=== PATIENT | female | born 1940 | race Caucasian/White ===

== ENCOUNTER → 2016-09-30 | Outpatient (CLI) | payer MEDICARE, MEDICAID | LOC: WI 09:10 | PROVIDERS: ATTEND Internal Medicine | DX: Z12.31 Encounter for screening mammogram for malignant neoplasm of breast (principal) | CPT/HCPCS: 77067; G0202 ==

== ENCOUNTER → 2016-12-10 | Outpatient (CLI) | payer MEDICARE, MEDICAID ==
[2016-12-10 12:09] LABS: APPEARANCE,URINE SLIGHTLY-CLOUDY; BILIRUBIN,URINE NEGATIVE (NEGATIVE); GLUCOSE, URINE NEGATIVE (NEGATIVE); KETONES,URINE NEGATIVE (NEGATIVE); LEUKOCYTE ESTERASE,URINE MODERATE (NEGATIVE); NITRITE,URINE NEGATIVE (NEGATIVE); PROTEIN,URINE NEGATIVE (NEGATIVE); URINE SPECIFIC GRAVITY 1.006; UROBILINOGEN,URINE NEGATIVE mg/dL (<2.0)
[2016-12-10 12:10] LABS: ABSOLUTE EOSINOPHILS # (AUTO) 0.1 10^3/uL (0.0-0.6); ABSOLUTE LYMPHOCYTES (AUTO) 1.9 10^3/uL (0.5-4.7); ABSOLUTE MONOCYTES (AUTO) 0.5 10^3/uL (0.1-1.4); ABSOLUTE NEUT (AUTO) 3.4 10^3/uL (1.7-8.2); BASOPHILS % (AUTO) 0.5 % (0-2); HEMATOCRIT 40.7 % (36.0-47.0); HEMOGLOBIN 13.5 g/dL (12.0-15.5); HGB HCT DIFFERENCE -0.2; MEAN CORPUSCULAR HEMOGLOBIN 30.4 pg (27.0-33.4); MEAN CORPUSCULAR HGB CONC 33.1 g/dL (32.0-36.0); MEAN CORPUSCULAR VOLUME 92 fl (80-97); MONOCYTES % (AUTO) 7.8 % (3-13); RED BLOOD COUNT 4.43 10^6/uL (3.72-5.28); RED CELL DISTRIBUTION WIDTH 13.3 % (11.5-14.0); SEGMENTED NEUTROPHILS % (AUTO) 58.7 % (42-78); WHITE BLOOD COUNT 5.9 10^3/uL (4.0-10.5)
[2016-12-10 12:30] LABS: ANION GAP 12 (5-19); BLOOD UREA NITROGEN 13 mg/dL (7-20); CALCIUM 10.1 mg/dL (8.4-10.2); CARBON DIOXIDE 26 mmol/L (22-30); CHLORIDE 99 mmol/L (98-107); GLUCOSE 97 mg/dL (75-110); POTASSIUM 5.6 mmol/L (3.6-5.0); SODIUM 136.5 mmol/L (137-145)
--- NOTE | 2016-12-10 13:25 | RADIOLOGY REPORT (SQ) ---
EXAM DESCRIPTION: CHEST PA/LATERAL COMPLETED DATE/TIME: 12/10/2016 11:49 am REASON FOR STUDY: PRE-OP COMPARISON: April 2007 EXAM PARAMETERS: NUMBER OF VIEWS: two views TECHNIQUE: Digital Frontal and Lateral radiographic views of the chest acquired. RADIATION DOSE: NA LIMITATIONS: none FINDINGS: LUNGS AND PLEURA: No opacities, masses or pneumothorax. No pleural effusion. I cannot exc lude a component of obstructive lung disease. MEDIASTINUM AND HILAR STRUCTURES: No masses or contour abnormalities. HEART AND VASCULAR STRUCTURES: Heart normal size. No evidence for failure. Tortuous thoracic aorta is again identified. BONES: No acute findings. HARDWARE: None in the chest. OTHER: No other significant finding. IMPRESSION: No significant interval change. No acute findings. Other findings as noted above TECHNICAL DOCUMENTATION: JOB ID: [id number] [employer]- All Rights Reserved
== END ==
LOC: OD 10:33
PROVIDERS: ATTEND Orthopaedic Surgery
DX: Z01.818 Encounter for other preprocedural examination (principal)
CPT/HCPCS: 36415; 71020; 80048; 81001; 85025

== ENCOUNTER 2016-12-29 05:31 | Inpatient (IN) | payer MEDICARE, MEDICAID ==
--- NOTE | 2016-12-24 11:05 | EKG REPORT ---
SEVERITY:- ABNORMAL ECG - SINUS RHYTHM LEFT ANTERIOR FASCICULAR BLOCK CONSIDER LEFT VENTRICULAR HYPERTROPHY : Confirmed by: Marilee Gurrola MD 24-Dec-2016 11:04:48
[~2016-12-29 05:31] MED LIST: BUPIVACAINE INJ/PF LIPOSOME/PF 266 MG/20 ML SDV IJ PRN; CEFAZOLIN INJ 1 GM VIAL IV PRN; IBUPROFEN 800 MG in NORMAL SALINE 250 ML IV PRN; LACTATED RINGERS 1000 ML IV PRN; LANSOPRAZOLE 15 MG TAB.RAP.DR PO PRN; LIDOCAINE 0.5% INJ-PF (5 MG/ML) 50 ML SDV SUBCUT PRN; OXYCODONE HCL SR 10 MG TABLET PO PRN; SCOPOLAMINE HYDROBROMIDE 1.5 MG PATCH.TD72 TD PRN; VANCOMYCIN HCL 1,000 MG in DEXTROSE 5%-WATER 250 ML IV PRN
[2016-12-29] MEDS ORDERED: THROMBIN (BOVINE) TOPICAL 20000 UNIT VIAL ONE (06:43)
[2016-12-29] MEDS ORDERED: BUPIVACAINE INJ/PF LIPOSOME/PF 266 MG/20 ML SDV ONE (06:44)
[2016-12-29] MEDS ORDERED: THROMBIN (BOVINE) 5000 UNIT EPITAXIS KIT ONE (06:44)
[2016-12-29] MEDS ORDERED: MIDAZOLAM 2 MG/2 ML INJ ONE (07:21)
[2016-12-29] MEDS ORDERED: ACETAMINOPHEN 100 ML IV ONE (07:22)
[2016-12-29] MEDS ORDERED: PROPOFOL INJ 200 MG/20 ML VIAL IV ONE (07:22)
[2016-12-29] MEDS ORDERED: EPHEDRINE SULFATE INJ 50 MG/1 ML AMPULE ONE (07:22)
[2016-12-29] MEDS ORDERED: FENTANYL CITRATE INJ/PF 250 MCG/5 ML AMPULE ONE (07:22)
[2016-12-29] MEDS ORDERED: TRANEXAMIC ACID INJ/PF 1,000 MG/10 ML SDV IV ONE ×2 (07:23→09:28)
[2016-12-29] MEDS ORDERED: KETAMINE HCL INJ 500 MG/10 ML VIAL ONE (07:31)
[2016-12-29] MEDS ORDERED: OXYCODONE-ACETAMINOPHEN 5-325 MG TABLET PO PRN ×2 (08:13)
[2016-12-29] MEDS ORDERED: DIPHENHYDRAMINE HCL 50 MG/ML VIAL IV PRN ×2 (08:13→09:05)
[2016-12-29] MEDS ORDERED: FENTANYL CITRATE INJ/PF 100 MCG/2 ML AMPUL IV PRN ×3 (08:13)
[2016-12-29] MEDS ORDERED: MEPERIDINE HCL/PF INJ 25 MG/1 ML DISP.SYRIN IV PRN (08:13)
[2016-12-29] MEDS ORDERED: PROMETHAZINE HCL INJ 25 MG/1 ML VIAL IV PRN ×2 (08:13)
[2016-12-29] MEDS ORDERED: MORPHINE SULFATE 10 MG/ML INJ IV PRN ×4 (08:13→09:05)
--- NOTE | 2016-12-29 09:04 | Operative Report ---
Operative Report DATE OF SURGERY: 12/29/16 PREOPERATIVE DIAGNOSIS: r knee oa OPERATION: R knee arthroplasty ANESTHESIA: Spinal TISSUE REMOVED OR ALTERED: bone to pathology ESTIMATED BLOOD LOSS: 100 PROCEDURE: The Implants used: Femur: Triathlon #5 CR femur Tibia: 4 tibia Tibial liner: 11 mm CS insert Patella: 32 mm oval patella Procedure with the patient supine on the operating table the right the limb is prepped and draped in a sterile fashion. The limb was elevated for exsanguination and the tourniquet inflated to 280 torr. A standard midline median parapatellar approach the knee is taken. Access is gained to the femoral canal through the intercondylar notch. Intramedullary alignment instrumentation used to resect 10 mm of distal femur in 5 of valgus. Sizing guide indicated a size 5 femur. Appropriate cutting jig is then used to fashion anterior posterior and chamfer cuts. A trial reduction femurs performed and this is judged to be adequate. Attention was next turned to the tibia. Using an extra medullary alignment system 9 millimeters was resected off the lateral tibial plateau. This is sized to a size 4 tibia. A trial reduction was now performed with a 5 femur and a for tibia using a 11 millimeters spacer. It is full extension and central patellofemoral tracking. The articular surface the patella was next resected using an oscillating saw. All trial implants were removed. Polymethylmethacrylate is mixed and used to cement the above implants in place. On adequate curing the cement excess cement was removed the tourniquet was deflated hemostasis obtained the wound is then closed in layers using interrupted Vicryl followed by jl. A sterile compressive dressing was applied and the patient returned to recovery room in satisfactory condition.
[2016-12-29] MEDS ORDERED: MORPHINE SULFATE 10 MG/ML INJ IM PRN (09:05)
[2016-12-29] MEDS ORDERED: MAG HYDROX/AL HYDROX/SIMETH SUSP 30 ML UDCUP PO PRN (09:05)
[2016-12-29] MEDS ORDERED: ZOLPIDEM TARTRATE 5 MG TABLET PO PRN (09:05)
[2016-12-29] MEDS ORDERED: ONDANSETRON HCL INJ/PF 4 MG/2 ML SDV IV PRN (09:05)
[2016-12-29] MEDS ORDERED: RINGERS SOLUTION,LACTATED 1,000 ML IV PRN (09:05)
--- NOTE | 2016-12-29 09:48 | RADIOLOGY REPORT (SQ) ---
EXAM DESCRIPTION: KNEE RIGHT 2 VIEWS COMPLETED DATE/TIME: 12/29/2016 9:32 am REASON FOR STUDY: Post OP -Long Cassette in PACU M17.11 UNILATERAL PRIMARY OSTEOARTHRITIS, RIGHT KN EE COMPARISON: None. NUMBER OF VIEWS: Two view(s). TECHNIQUE: Digital radiographic images of the right knee post-procedure. LIMITATIONS: None. FINDINGS: BONES: No worrisome or unexpected findings post-procedure. DEVICE: Right total knee arthroplasty noted. Components appear to be in appropriate location. SOFT TISSUES: No worrisome findings. Expected postoperative soft tissue changes. Surgical jl noted anteriorly. IMPRESSION: SATISFACTORY POSTOPERATIVE RIGHT KNEE. TECHNICAL DOCUMENTATION: JOB ID: [id number] [employer]- All Rights Reserved
[2016-12-29] MEDS ORDERED: (PENDING PHARMACY ID) (Ergocalciferol (Vitamin D2) [Vitamin D] 1,000 UNIT) PO SCH (10:00)
[2016-12-29] MEDS ORDERED: (PENDING PHARMACY ID) (Vit C/Vit E/Lutein/Min/Omega-3 [Ocuvite Softgel] 1 EACH) PO SCH (10:00)
[2016-12-29] MEDS: PRENATAL VITAMIN W-O CA NO5/FE FUMARATE/FA CAPSULE PO SCH (11:11)
[2016-12-29] MEDS: SENNOSIDES/DOCUSATE 8.6-50 MG 1 EACH TABLET PO SCH ×2 (11:11→17:29)
[2016-12-29] MEDS ORDERED: PHENYLEPHRINE HCL INJ/PF 10 MG/1 ML SDV ONE (14:22)
[2016-12-29] MEDS ORDERED: LIDOCAINE 2% INJ-PF (20 MG/ML) 10 ML AMPUL ONE (14:22)
[2016-12-29] MEDS: CLONIDINE HCL 0.2 MG TABLET PO SCH ×2 (15:32→21:14)
[2016-12-29] MEDS: PROMETHAZINE HCL 25 MG TABLET PO PRN (15:33)
[2016-12-29] MEDS: IBUPROFEN 800 MG in NORMAL SALINE 250 ML IV SCH ×2 (15:33→23:26)
[2016-12-29] MEDS: SPIRONOLACTONE 25 MG TABLET PO SCH (17:29)
[2016-12-29] MEDS: SULFAMETHOXAZOLE/TRIMETHOPRIM 800-160 MG TABLET PO SCH (17:29)
[2016-12-29] MEDS ORDERED: DILTIAZEM HCL 360 MG PO SCH (18:00)
[2016-12-29] MEDS ORDERED: VANCOMYCIN HCL 1,000 MG in DEXTROSE 5%-WATER 250 ML IV ONE (21:00)
[2016-12-29] MEDS: RIVAROXABAN 10 MG TABLET PO SCH (21:14)
[2016-12-29] MEDS: OXYCODONE HCL SR 10 MG TABLET PO SCH (21:15)
[2016-12-30] MEDS: IBUPROFEN 800 MG in NORMAL SALINE 250 ML IV SCH ×3 (05:29→21:37)
[2016-12-30] MEDS: CLONIDINE HCL 0.2 MG TABLET PO SCH ×3 (05:30→21:38)
[2016-12-30] MEDS: LANSOPRAZOLE 30 MG TAB.RAP.DR PO SCH (05:30)
[2016-12-30 06:55] LABS: HEMATOCRIT 30.8 % (36.0-47.0); HGB HCT DIFFERENCE -0.8; MEAN CORPUSCULAR HEMOGLOBIN 30.6 pg (27.0-33.4); MEAN CORPUSCULAR HGB CONC 32.6 g/dL (32.0-36.0); MEAN CORPUSCULAR VOLUME 94 fl (80-97); RED BLOOD COUNT 3.28 10^6/uL (3.72-5.28); RED CELL DISTRIBUTION WIDTH 13.7 % (11.5-14.0); WHITE BLOOD COUNT 6.5 10^3/uL (4.0-10.5)
[2016-12-30 07:20] LABS: ANION GAP 9 (5-19); BLOOD UREA NITROGEN 13 mg/dL (7-20); CALCIUM 8.4 mg/dL (8.4-10.2); CARBON DIOXIDE 21 mmol/L (22-30); CHLORIDE 100 mmol/L (98-107); CREATININE RESULT 1.01 mg/dL (0.52-1.25); GLUCOSE 83 mg/dL (75-110); POTASSIUM 4.2 mmol/L (3.6-5.0); SODIUM 129.6 mmol/L (137-145)
--- NOTE | 2016-12-30 07:20 | PDOC PROGRESS REPORT ---
Subjective Progress Note for:: 12/30/16 Subjective:: Patient with no complaints today Physical Exam Vital Signs: Temp Pulse Resp BP Pulse Ox 36.7 C 67 16 114/54 L 96 12/30/16 00:00 12/30/16 00:00 12/29/16 20:12 12/30/16 00:00 12/30/16 00:00 Intake & Output 12/29/16 12/30/16 12/31/16 06:59 06:59 06:59 Intake Total 0 3950 Output Total 4575 Balance 0 -625 Weight 72.1 kg General appearance: PRESENT: no acute distress Head exam: PRESENT: normocephalic Eye exam: PRESENT: EOMI Respiratory exam: PRESENT: unlabored Cardiovascular exam: PRESENT: RRR Pulses: PRESENT: +1 pedal pulses bilateral Vascular exam: PRESENT: normal capillary refill GI/Abdominal exam: PRESENT: soft Rectal exam: PRESENT: deferred Extremities exam: PRESENT: other - Right lower extremity dressing clean dry and intact. Distal neurovascular examination is intact. Neurological exam: PRESENT: alert, awake, oriented to person, oriented to place , oriented to time, oriented to situation. ABSENT: motor sensory deficit Psychiatric exam: PRESENT: appropriate affect, normal mood. ABSENT: homicidal ideation, suicidal ideation Skin exam: PRESENT: dry, intact, warm. ABSENT: cyanosis, rash Results Laboratory Results: 12/30/16 06:40 12/30/16 06:40 WBC 6.5 RBC 3.28 L Hgb 10.0 L Hct 30.8 L MCV 94 MCH 30.6 MCHC 32.6 RDW 13.7 Plt Count 201 Impressions: Knee X-Ray 12/29/16 09:06 IMPRESSION: SATISFACTORY POSTOPERATIVE RIGHT KNEE. Status: Imported from PACS Assessment & Plan - Diagnosis (1) Arthritis of right knee Is this a current diagnosis for this admission?: YesPlan: 76-year-old white female status post right knee arthroplasty, postop day #1. Uneventful postoperative course. She made limited progress with physical therapy yesterday because of nausea. Anticipate ongoing physical therapy today with potential discharge home tomorrow with home health nursing, home health physical therapy, wheeled walker, bedside commode. - Time Time Spent with patient: 15-24 minutes Anticipated discharge: Home with Homehealth Within: within 24 hours
[2016-12-30] MEDS: OXYCODONE HCL SR 10 MG TABLET PO SCH ×2 (11:00→21:37)
[2016-12-30] MEDS: SULFAMETHOXAZOLE/TRIMETHOPRIM 800-160 MG TABLET PO SCH ×2 (11:02→17:23)
[2016-12-30] MEDS: PRENATAL VITAMIN W-O CA NO5/FE FUMARATE/FA CAPSULE PO SCH (11:02)
[2016-12-30] MEDS: SENNOSIDES/DOCUSATE 8.6-50 MG 1 EACH TABLET PO SCH ×2 (11:02→17:24)
[2016-12-30] MEDS ORDERED: MAG HYDROX/AL HYDROX/SIMETH SUSP 30 ML UDCUP PO PRN (13:57)
[2016-12-30] MEDS ORDERED: ONDANSETRON HCL INJ/PF 4 MG/2 ML SDV IV PRN (13:58)
[2016-12-30] MEDS: SPIRONOLACTONE 25 MG TABLET PO SCH (17:24)
[2016-12-30] MEDS: DILTIAZEM HCL 180 MG CAPSULE.CR PO SCH (17:24)
[2016-12-30] MEDS ORDERED: DILTIAZEM HCL 120 MG CAP.SR.24H PO SCH (18:00)
[2016-12-30] MEDS: RIVAROXABAN 10 MG TABLET PO SCH (21:36)
[2016-12-31] MEDS: IBUPROFEN 800 MG in NORMAL SALINE 250 ML IV SCH (02:56)
[2016-12-31 04:45] LABS: HEMATOCRIT 33.1 % (36.0-47.0); HGB HCT DIFFERENCE -0.1; MEAN CORPUSCULAR HEMOGLOBIN 30.8 pg (27.0-33.4); MEAN CORPUSCULAR HGB CONC 33.4 g/dL (32.0-36.0); MEAN CORPUSCULAR VOLUME 92 fl (80-97); RED BLOOD COUNT 3.58 10^6/uL (3.72-5.28); RED CELL DISTRIBUTION WIDTH 13.3 % (11.5-14.0); WHITE BLOOD COUNT 11.4 10^3/uL (4.0-10.5)
[2016-12-31] MEDS: ONDANSETRON 4 MG TAB.RAPDIS PO PRN (05:24)
[2016-12-31] MEDS: CLONIDINE HCL 0.2 MG TABLET PO SCH ×3 (05:24→22:55)
[2016-12-31] MEDS: LANSOPRAZOLE 30 MG TAB.RAP.DR PO SCH (05:24)
--- NOTE | 2016-12-31 07:00 | PDOC DISCHARGE SUMMARY ---
General - Admit/Disc Date/PCP Admission Date/Primary Care Provider: 12/29/16 05:31 ROXANA GILLIAM MD Discharge Date: 12/31/16 - Discharge Diagnosis (1) Arthritis of right knee Is this a current diagnosis for this admission?: Yes - Additional Information Resuscitation Status: Full Code Discharge Diet: As Tolerated, Regular Discharge Activity: Balance Activity w/Rest, No tub bath Home Medications: Clonidine HCl 0.6 mg PO TID 12/22/16 Diltiazem HCl [Taztia Xt] 360 mg PO QPM 12/22/16 Ergocalciferol (Vitamin D2) [Vitamin D] 1,000 unit PO DAILY 12/22/16 Spironolactone 25 mg PO QPM 12/22/16 Vit C/Vit E/Lutein/Min/[place]-3 [Ocuvite Softgel] 1 each PO DAILY 12/22/16 Sulfamethoxazole/Trimethoprim [Septra-Ds 800-160 mg Tablet] 1 tab PO BID Oxycodone HCl [Oxy-Ir 5 mg Tablet] 5 mg PO Q6HP PRN #0 tablet 12/31/16 Rivaroxaban [Xarelto 10 mg Tablet] 10 mg PO QHS #0 tablet 12/31/16 History of Present Illness History of Present Illness: ALISA PORTER is a 76 year old female aggressive right knee pain and functional disability secondary osteoarthritis. She is admitted for an elective right knee arthroplasty. Hospital Course Hospital Course: Admitted through the operating room where she undergoes uncomplicated right knee arthroplasty. She is returned to the floor in satisfactory condition. She makes excellent progress with physical therapy. Picot dressing remains clean dry and intact. There is minimal pedal edema. Distal neurovascular examination is intact. Physical Exam Vital Signs: Temp Pulse Resp BP Pulse Ox 37.4 C 99 18 136/77 H 98 12/31/16 04:15 12/31/16 04:15 12/31/16 04:15 12/31/16 04:15 12/31/16 04:15 Intake & Output 12/29/16 12/30/16 12/31/16 06:59 06:59 06:59 Intake Total 0 3950 350 Output Total 4575 Balance 0 -625 350 Weight 72.1 kg General appearance: PRESENT: no acute distress Head exam: PRESENT: normocephalic Eye exam: PRESENT: EOMI Respiratory exam: PRESENT: unlabored Cardiovascular exam: PRESENT: RRR Pulses: PRESENT: +1 pedal pulses bilateral Vascular exam: PRESENT: normal capillary refill GI/Abdominal exam: PRESENT: soft Rectal exam: PRESENT: deferred Extremities exam: PRESENT: other - Right lower extremity picot dressing is clean dry and intact Neurological exam: PRESENT: alert, awake, oriented to person, oriented to place , oriented to time, oriented to situation, CN II-XII grossly intact. ABSENT: motor sensory deficit Psychiatric exam: PRESENT: appropriate affect, normal mood. ABSENT: homicidal ideation, suicidal ideation Skin exam: PRESENT: dry, intact, warm. ABSENT: cyanosis, rash Results Laboratory Results: 12/31/16 04:12 12/30/16 06:40 12/30/16 12/30/16 12/31/16 06:40 06:40 04:12 WBC 6.5 11.4 H RBC 3.28 L 3.58 L Hgb 10.0 L 11.0 L Hct 30.8 L 33.1 L MCV 94 92 MCH 30.6 30.8 MCHC 32.6 33.4 RDW 13.7 13.3 Plt Count 201 265 Sodium 129.6 L Potassium 4.2 Chloride 100 Carbon Dioxide 21 L Anion Gap 9 BUN 13 Creatinine 1.01 Est GFR ( Amer) > 60 Est GFR (Non-Af Amer) 53 L Glucose 83 Calcium 8.4 Impressions: Knee X-Ray 12/29/16 09:06 IMPRESSION: SATISFACTORY POSTOPERATIVE RIGHT KNEE. Status: Imported from PACS Plan Discharge Plan: To be discharged home with home health nursing, home health physical therapy, wheeled walker, bedside commode. Visiting nurse service can change the picot dressing on postop day 7 and replaced with a standard OpSite dressing. Follow- up will be with Dr. Nevarez in the [facility] for surgery in 2 weeks for staple removal. Time Spent: Greater than 30 Minutes
[2016-12-31] MEDS: PRENATAL VITAMIN W-O CA NO5/FE FUMARATE/FA CAPSULE PO SCH (09:18)
[2016-12-31] MEDS: SENNOSIDES/DOCUSATE 8.6-50 MG 1 EACH TABLET PO SCH ×2 (09:19→19:43)
[2016-12-31] MEDS: OXYCODONE HCL SR 10 MG TABLET PO SCH (09:20)
[2016-12-31] MEDS: SULFAMETHOXAZOLE/TRIMETHOPRIM 800-160 MG TABLET PO SCH ×2 (09:21→19:43)
[2016-12-31] MEDS: CHOLECALCIFEROL (D3) 1,000 UNIT TABLET PO SCH (09:22)
[2016-12-31] MEDS: PROMETHAZINE HCL 25 MG TABLET PO PRN (10:44)
--- NOTE | 2016-12-31 15:15 | PDOC CONSULTATION ---
Consultation Consult Date: 12/31/16 Attending physician:: CARLY VAZQUEZ Consult reason:: medical management History of Present Illness Admission Date/PCP: 12/29/16 05:31 ROXANA GILLIAM MD Patient complains of: knee pain initially; now having confusion, N/V and anorexia History of Present Illness: ALISA PORTER is a 76 year old female aggressive right knee pain and functional disability secondary osteoarthritis. She is admitted for an elective right knee arthroplasty, which she seemed to tolerate without difficulty until this morning. Her daughter reports that she started "talking out of her head", not making any sense, seeing things or confusing things like the pat of butter as remote control for the TV and she has never had anything like this before. she is normally high functioning and able to care for herself. The patient recognizes she is at times confused but can tell me all the details related to this hospitalization, date and time at present. daughter also notes she vomited this morning the contents of last night's dinner seemingly undigested but patient denies abdominal pain, dysphagia, odynophagia or difficulty with heartburn and states the dinner went down without difficulty. she didn't sleep well last night, falling asleep at 0400 this morning. she thinks the pain meds are too strong, previously taking oxyER with oxyIR for breakthrough pain. ironically states her knee pain is well controlled at present. she cannot rememeber her last BM but none since her arrival here. she denies fevers/chills, dysuria, TERRAZAS, dizziness, n/t, unilateral weakness, speech or swallow difficulties, chest pain or palpitations. review of the chart shows her serum Na is trending down, she is on bactrim but not clear why but possibly related to bacteruria seen on UA late November and her WBCs trended up. Past Medical History Cardiac Medical History: Reports: Hypertension Denies: Atrial Fibrillation, Congestive Heart Failure, Coronary Artery Disease, Myocardial Infarction, Hyperlipidema, Peripheral Vascular Disease, Heart Murmur Malignancy Medical History: Denies: Breast Cancer, Cervical Cancer, Ovarian Cancer Musculoskeltal Medical History: Reports: Arthritis Denies: Fibromyalgia Past Surgical History Past Surgical History: Reports: Orthopedic Surgery - left total knee Denies: Amputation, Appendectomy, Section, Cholecystectomy, Coronary Artery Bypass Graft, Gastric Bypass Surgery, Herniorrhaphy, Hysterectomy, Mastectomy, Pacemaker, Tonsillectomy, Tubal Ligation Social History Information Source: Patient Smoking Status: Never Smoker Frequency of Alcohol Use: None Hx Recreational Drug Use: No Hx Prescription Drug Abuse: No - Advance Directive Resuscitation Status: Full Code Family History Family History: Reviewed & Not Pertinent, CAD Parental Family History Reviewed: Yes Children Family History Reviewed: Yes Sibling(s) Family History Reviewed.: Yes Medication/Allergy Home Medications: Clonidine HCl 0.6 mg PO TID 12/22/16 Diltiazem HCl [Taztia Xt] 360 mg PO QPM 12/22/16 Ergocalciferol (Vitamin D2) [Vitamin D] 1,000 unit PO DAILY 12/22/16 Spironolactone 25 mg PO QPM 12/22/16 Vit C/Vit E/Lutein/Min/[place]-3 [Ocuvite Softgel] 1 each PO DAILY 12/22/16 Sulfamethoxazole/Trimethoprim [Septra-Ds 800-160 mg Tablet] 1 tab PO BID Oxycodone HCl [Oxy-Ir 5 mg Tablet] 5 mg PO Q6HP PRN #0 tablet 12/31/16 Rivaroxaban [Xarelto 10 mg Tablet] 10 mg PO QHS #0 tablet 12/31/16 Allergies/Adverse Reactions: No Known Allergies Allergy (Unverified 12/22/16 13:56) Review of Systems All systems: reviewed and no additional remarkable complaints except as stated - all systems reviewed, see HPI, remaining systesm negatvie Physical Exam Vital Signs: Temp Pulse Resp BP Pulse Ox 98.9 F 85 20 137/65 H 98 12/31/16 11:23 12/31/16 11:23 12/31/16 11:23 12/31/16 11:23 12/31/16 11:23 Intake & Output 12/30/16 12/31/16 01/01/17 06:59 06:59 06:59 Intake Total 3950 350 Output Total 4575 Balance -625 350 Weight 72.1 kg General appearance: PRESENT: no acute distress, well-developed, well-nourished Head exam: PRESENT: atraumatic, normocephalic Eye exam: PRESENT: EOMI. ABSENT: conjunctival injection, scleral icterus Mouth exam: PRESENT: moist, neck supple Neck exam: PRESENT: full ROM. ABSENT: JVD, tenderness, tracheal deviation Respiratory exam: PRESENT: clear to auscultation steffen. ABSENT: accessory muscle use Cardiovascular exam: PRESENT: RRR. ABSENT: systolic murmur Pulses: PRESENT: normal radial pulses, normal dorsalis pedis pul Vascular exam: PRESENT: normal capillary refill GI/Abdominal exam: PRESENT: hernia - large ventral hernia along vertical linear scar just above the umbilicus containing loop of bowel and fat, most of which I can reduce back into the deficit without pain, normal bowel sounds, soft. ABSENT: tenderness Extremities exam: PRESENT: joint swelling - right with picot drain in place and suture line c/d/i, tenderness - along the surgical site Neurological exam: PRESENT: alert, awake, oriented to person, oriented to place , oriented to time Psychiatric exam: PRESENT: appropriate affect, normal mood. ABSENT: agitated Focused psych exam: ABSENT: psychomotor agitation, restlessness, other - no tremors Skin exam: PRESENT: warm. ABSENT: rash Results Laboratory Results: 12/31/16 04:12 12/30/16 06:40 12/31/16 04:12 WBC 11.4 H RBC 3.58 L Hgb 11.0 L Hct 33.1 L MCV 92 MCH 30.8 MCHC 33.4 RDW 13.3 Plt Count 265 Impressions: Knee X-Ray 12/29/16 09:06 IMPRESSION: SATISFACTORY POSTOPERATIVE RIGHT KNEE. Assessment & Plan - Diagnosis (1) Vomiting Qualifiers: Vomiting type: unspecified Vomiting Intractability: non-intractable Nausea presence: with nausea Qualified Code(s): R11.2 - Nausea with vomiting, unspecified Is this a current diagnosis for this admission?: YesPlan: seems to have resolved and quite possibly related to opiates and/or bactrim Tx as either can be quite nauseating. w/u as below, IVFs and imaging and stop the long acting opiate. if no obstruction on imaging then add cathartics to get her bowels moving again. (2) Ventral hernia Qualifiers: Obstruction and gangrene presence: without obstruction or gangrene Qualified Code(s): K43.9 - Ventral hernia without obstruction or gangrene Is this a current diagnosis for this admission?: YesPlan: chronic and unclear if contributing to her anorexia but there appears to be incarcerated fat so will ck ct a/p with contrast to better characterize and will eval for obstruction as well. (3) Hyponatremia Is this a current diagnosis for this admission?: YesPlan: probably due to lack of oral intake, possibly adverse reaction to Bactrim Tx; will ck again today, hydrate with NS through the night and roscoe in am. if no improvement or worse, will need to stop the Bactrim, unclear why she is taking at this time. (4) Arthritis of right knee Is this a current diagnosis for this admission?: YesPlan: s/p elective Rt TKA; wound care and ambulation per ortho (5) Acute metabolic encephalopathy Is this a current diagnosis for this admission?: YesPlan: seems transient, back to baseline aside from some lethargy; likely multifactorial for the reasons already outlined above. - Time Time Spent: 50 to 70 Minutes Medications reviewed and adjusted accordingly: Yes Anticipated discharge: Home Within: within 24 hours
[2016-12-31 16:29] LABS: ALANINE AMINOTRANSFERASE 36 U/L (9-52); ALBUMIN 3.4 g/dL (3.5-5.0); ALKALINE PHOSPHATASE 110 U/L (38-126); ANION GAP 14 (5-19); ASPARTATE AMINO TRANSFERASE 38 U/L (14-36); BILIRUBIN,DIRECT 0.5 mg/dL (0.0-0.4); BILIRUBIN,TOTAL 0.9 mg/dL (0.2-1.3); BLOOD UREA NITROGEN 17 mg/dL (7-20); CALCIUM 8.8 mg/dL (8.4-10.2); CARBON DIOXIDE 21 mmol/L (22-30); CHLORIDE 94 mmol/L (98-107); CREATININE RESULT 1.12 mg/dL (0.52-1.25); GLUCOSE 87 mg/dL (75-110); LIPASE 66.1 U/L (23-300); MAGNESIUM 1.6 mg/dL (1.6-2.3); PHOSPHORUS 2.8 mg/dL (2.5-4.5); POTASSIUM 4.8 mmol/L (3.6-5.0); SODIUM 128.6 mmol/L (137-145); TOTAL PROTEIN 6.5 g/dL (6.3-8.2)
[2016-12-31 17:48] LABS: APPEARANCE,URINE CLEAR; BILIRUBIN,URINE NEGATIVE (NEGATIVE); GLUCOSE, URINE NEGATIVE (NEGATIVE); KETONES,URINE TRACE mg/dL (NEGATIVE); LEUKOCYTE ESTERASE,URINE NEGATIVE (NEGATIVE); NITRITE,URINE NEGATIVE (NEGATIVE); PROTEIN,URINE NEGATIVE (NEGATIVE); URINE SPECIFIC GRAVITY 1.006; UROBILINOGEN,URINE NEGATIVE mg/dL (<2.0)
--- NOTE | 2016-12-31 19:08 | RADIOLOGY REPORT (SQ) ---
EXAM DESCRIPTION: CT ABD/PELVIS WITH IV ORAL COMPLETED DATE/TIME: 12/31/2016 6:31 pm REASON FOR STUDY: nausea/vomiting; ventral hernia M17.11 UNILATERAL PRIMARY OSTEOARTHRITIS, RIGHT K NEE COMPARISON: None. TECHNIQUE: CT scan of the abdomen and pelvis performed using helical scanning technique with dynamic intravenous contrast injection. No oral contrast. Images reviewed with lung, soft tissue, and bone windows. Reconstructed coronal and sagittal MPR images reviewed. Delayed images for evaluation of the urinary system also acquired. All images stored on PACS. All CT scanners at this facility use dose modulation, iterative reconstruction, and/or weight based d osing when appropriate to reduce radiation dose to as low as reasonably achievable (ALARA). [facility]: Dose Right [facility]: CareDose [facility]: Dose Right [facility]: Teradose 4D [facility]: [employer] CONTRAST TYPE AND DOSE: contrast/concentration: Isovue 370.00 mg/ml; Total Contrast Delivered: 78.0 ml; Total Saline Delivered: 50.0 ml RENAL FUNCTION: GFR > 60. RADIATION DOSE: Up-to-date CT equipment and radiation dose reduction techniques were employed. CTDIv ol: 11.8 - 15.9 mGy. DLP: 1365 mGy-cm.. LIMITATIONS: None. FINDINGS: LOWER CHEST: Minimal left lower lobe subsegmental atelectasis. LIVER: Normal size. No masses or dilated ducts. SPLEEN: Normal size. No focal lesions. PANCREAS: No masses. No significant calcifications. No adjacent inflammation or peripancreatic fluid collections. Pancreatic duct not dilated. GALLBLADDER: No identified stones by CT criteria. No inflammatory changes to suggest cholecystitis. ADRENAL GLANDS: No significant masses or asymmetry. RIGHT KIDNEY AND URETER: No solid masses. Small cysts. No significant calcifications. No hydronep hrosis or hydroureter. LEFT KIDNEY AND URETER: No solid masses. Small cysts. No significant calcifications. No hydroneph rosis or hydroureter. AORTA AND VESSELS: No aneurysm. No dissection. Renal arteries, SMA, celiac without stenosis. RETROPERITONEUM: Scattered small adenopathy. No hemorrhage or masses. BOWEL AND PERITONEAL CAVITY: 6.5 cm fat containing infra umbilical ventral hernia. No bowel involvem ent. No masses or inflammatory changes. No free fluid or peritoneal masses. APPENDIX: Normal. PELVIS: No mass or free fluid. Normal bladder. ABDOMINAL WALL: 6.5 cm fat containing infra umbilical ventral hernia. No bowel involvement. . BONES: No acute findings. OTHER: No other significant finding. IMPRESSION: NO ACUTE FINDING IN THE ABDOMEN OR PELVIS ON CT SCAN WITH IV CONTRAST. 6.5 cm fat conta ining infra umbilical ventral hernia. No bowel involvement. TECHNICAL DOCUMENTATION: JOB ID: [id number] Quality ID # [id number]: Final reports with documentation of one or more dose reduction techniques (e.g., Au tomated exposure control, adjustment of the mA and/or kV according to patient size, use of iterative reconstruction technique) 2010 [employer]- All Rights Reserved
[2016-12-31] MEDS: DILTIAZEM HCL 180 MG CAPSULE.CR PO SCH (19:42)
[2016-12-31] MEDS: SPIRONOLACTONE 25 MG TABLET PO SCH (19:43)
[2016-12-31] MEDS: ACETAMINOPHEN 325 MG TABLET PO PRN (19:43)
[2016-12-31] MEDS: RIVAROXABAN 10 MG TABLET PO SCH (22:57)
[2016-12-31] MEDS: NORMAL SALINE 1000 ML 1,000 ML IV PRN (22:59)
[2017-01-01] MEDS: NORMAL SALINE 1000 ML 1,000 ML IV PRN (06:31)
[2017-01-01] MEDS: ONDANSETRON 4 MG TAB.RAPDIS PO PRN (06:31)
[2017-01-01] MEDS: LANSOPRAZOLE 30 MG TAB.RAP.DR PO SCH (06:31)
[2017-01-01] MEDS: CLONIDINE HCL 0.2 MG TABLET PO SCH ×3 (06:31→22:00)
[2017-01-01 06:33] LABS: HEMATOCRIT 27.8 % (36.0-47.0); HEMOGLOBIN 9.6 g/dL (12.0-15.5); MEAN CORPUSCULAR HEMOGLOBIN 31.4 pg (27.0-33.4); MEAN CORPUSCULAR HGB CONC 34.5 g/dL (32.0-36.0); MEAN CORPUSCULAR VOLUME 91 fl (80-97); RED BLOOD COUNT 3.05 10^6/uL (3.72-5.28); RED CELL DISTRIBUTION WIDTH 13.5 % (11.5-14.0); WHITE BLOOD COUNT 6.9 10^3/uL (4.0-10.5)
[2017-01-01 06:41] LABS: ALANINE AMINOTRANSFERASE 32 U/L (9-52); ALBUMIN 3.1 g/dL (3.5-5.0); ALKALINE PHOSPHATASE 93 U/L (38-126); ANION GAP 9 (5-19); ASPARTATE AMINO TRANSFERASE 40 U/L (14-36); BILIRUBIN,DIRECT 0.6 mg/dL (0.0-0.4); BILIRUBIN,TOTAL 0.9 mg/dL (0.2-1.3); BLOOD UREA NITROGEN 15 mg/dL (7-20); CALCIUM 8.4 mg/dL (8.4-10.2); CARBON DIOXIDE 21 mmol/L (22-30); CHLORIDE 99 mmol/L (98-107); CREATININE RESULT 1.08 mg/dL (0.52-1.25); GLUCOSE 85 mg/dL (75-110); POTASSIUM 4.4 mmol/L (3.6-5.0); SODIUM 129.3 mmol/L (137-145); TOTAL PROTEIN 6.3 g/dL (6.3-8.2)
[2017-01-01] MEDS: CHOLECALCIFEROL (D3) 1,000 UNIT TABLET PO SCH (09:15)
[2017-01-01] MEDS: PRENATAL VITAMIN W-O CA NO5/FE FUMARATE/FA CAPSULE PO SCH (09:15)
[2017-01-01] MEDS: SENNOSIDES/DOCUSATE 8.6-50 MG 1 EACH TABLET PO SCH ×2 (09:16→18:33)
--- NOTE | 2017-01-01 10:37 | PDOC PROGRESS REPORT ---
Subjective Progress Note for:: 01/01/17 Subjective:: reason for f/u visit: medical management, nausea/vomiting, confusion, rigors hospital course: ALISA PORTER is a 76 year old female aggressive right knee pain and functional disability secondary osteoarthritis. She is admitted for an elective right knee arthroplasty, which she seemed to tolerate without difficulty until this morning. Her daughter reports that she started "talking out of her head", not making any sense, seeing things or confusing things like the pat of butter as remote control for the TV and she has never had anything like this before. she is normally high functioning and able to care for herself. The patient recognizes she is at times confused but can tell me all the details related to this hospitalization, date and time at present. daughter also notes she vomited this morning the contents of last night's dinner seemingly undigested but patient denies abdominal pain, dysphagia, odynophagia or difficulty with heartburn and states the dinner went down without difficulty. she didn't sleep well last night, falling asleep at 0400 this morning. she thinks the pain meds are too strong, previously taking oxyER with oxyIR for breakthrough pain. ironically states her knee pain is well controlled at present. she cannot rememeber her last BM but none since her arrival here. she denies fevers/chills, dysuria, TERRAZAS, dizziness, n/t, unilateral weakness, speech or swallow difficulties, chest pain or palpitations. review of the chart shows her serum Na is trending down, she is on bactrim but not clear why but possibly related to bacteruria seen on [facility] late November and her WBCs trended up. she spike a temp 101.4 12/30 and remains low grade at present 99.5 with persistent rigors for me at the bedside. still nauseous and can only keep a few bites down before retching. she denies pain except in the knee but "that is expected, I just had surgery". still no BM but no abdominal pain, odynophagia or dysphagia. still with episodic confusion according to the staff but none for me this morning. daughter isn't present at time of my visit. ROS: all systems reviewed, see above, remaiing systems negative Physical Exam Vital Signs: Temp Pulse Resp BP Pulse Ox 99.5 F 77 12 107/45 L 98 01/01/17 07:33 01/01/17 07:33 01/01/17 07:33 01/01/17 07:33 01/01/17 07:33 Intake & Output 12/31/16 01/01/17 01/02/17 06:59 06:59 06:59 Intake Total 350 1400 Output Total 350 Balance 350 1050 Weight 73.5 kg General appearance: PRESENT: no acute distress, well-developed, well-nourished, rigors Head exam: PRESENT: atraumatic, normocephalic Eye exam: PRESENT: EOMI. ABSENT: conjunctival injection, scleral icterus Mouth exam: PRESENT: moist, neck supple Neck exam: PRESENT: full ROM. ABSENT: JVD, tenderness, tracheal deviation Respiratory exam: PRESENT: clear to auscultation steffen. ABSENT: accessory muscle use Cardiovascular exam: PRESENT: RRR. ABSENT: systolic murmur Pulses: PRESENT: normal radial pulses, normal dorsalis pedis pul Vascular exam: PRESENT: normal capillary refill GI/Abdominal exam: PRESENT: hernia - large ventral hernia along vertical linear scar just above the umbilicus containingfat and without pain, normal bowel sounds, soft. ABSENT: tenderness Extremities exam: PRESENT: joint swelling - right with picot in place and suture line c/d/i, tenderness - along the surgical site;mild warmth to the knee compared to left and right leg more swollen than left but not unexpected after this surgery Neurological exam: PRESENT: alert, awake, oriented to person, oriented to place , oriented to time Psychiatric exam: PRESENT: appropriate affect, normal mood. ABSENT: agitated Focused psych exam: ABSENT: psychomotor agitation, restlessness Skin exam: PRESENT: warm. ABSENT: rash Results Laboratory Results: 01/01/17 06:01 01/01/17 06:01 12/31/16 12/31/16 01/01/17 15:36 17:25 06:01 WBC 6.9 RBC 3.05 L Hgb 9.6 L Hct 27.8 L MCV 91 MCH 31.4 MCHC 34.5 RDW 13.5 Plt Count 205 Sodium 128.6 L Potassium 4.8 Chloride 94 L Carbon Dioxide 21 L Anion Gap 14 BUN 17 Creatinine 1.12 Est GFR ( Amer) 57 L Est GFR (Non-Af Amer) 47 L Glucose 87 Calcium 8.8 Phosphorus 2.8 Magnesium 1.6 Total Bilirubin 0.9 AST 38 H ALT 36 Alkaline Phosphatase 110 Total Protein 6.5 Albumin 3.4 L Lipase 66.1 Urine Color YELLOW Urine Appearance CLEAR Urine pH 5.0 Ur Specific [place] 1.006 Urine Protein NEGATIVE Urine Glucose (UA) NEGATIVE Urine Ketones TRACE H Urine Blood NEGATIVE Urine Nitrite NEGATIVE Ur Leukocyte Esterase NEGATIVE Urine WBC (Auto) 4 Urine RBC (Auto) 1 01/01/17 06:01 WBC RBC Hgb Hct MCV MCH MCHC RDW Plt Count Sodium 129.3 L Potassium 4.4 Chloride 99 Carbon Dioxide 21 L Anion Gap 9 BUN 15 Creatinine 1.08 Est GFR ( Amer) 59 L Est GFR (Non-Af Amer) 49 L Glucose 85 Calcium 8.4 Phosphorus Magnesium Total Bilirubin 0.9 AST 40 H ALT 32 Alkaline Phosphatase 93 Total Protein 6.3 Albumin 3.1 L Lipase Urine Color Urine Appearance Urine pH Ur Specific [place] Urine Protein Urine Glucose (UA) Urine Ketones Urine Blood Urine Nitrite Ur Leukocyte Esterase Urine WBC (Auto) Urine RBC (Auto) Impressions: Knee X-Ray 12/29/16 09:06 IMPRESSION: SATISFACTORY POSTOPERATIVE RIGHT KNEE. Abdomen/Pelvis CT 12/31/16 17:50 IMPRESSION: NO ACUTE FINDING IN THE ABDOMEN OR PELVIS ON CT SCAN WITH IV CONTRAST. 6.5 cm fat containing infra umbilical ventral hernia. No bowel involvement. Assessment & Plan - Diagnosis (1) Rigors Is this a current diagnosis for this admission?: YesPlan: she certainly behaves like someone with infection somewhere but I don't see a clear source, perhaps masked somewhat by the Bactrim she is on, still not sure why. her urine was clear, ct a/p shows no source and no bowel obstruction, no significant atelectasis either on visualized portions of the lungs that I can see. leukocytosis resolved, lfts and lipase unremarkable. will stop the bactrim, removing it as confounder; send for blood cultures and CXR and monitor for a source before starting other abx. she should not d/c home at this time. (2) Vomiting Qualifiers: Vomiting type: unspecified Vomiting Intractability: non-intractable Nausea presence: with nausea Qualified Code(s): R11.2 - Nausea with vomiting, unspecified Is this a current diagnosis for this admission?: YesPlan: about the same; possibly related to opiates and/or bactrim Tx as either can be quite nauseating. no obstruction on imaging though moderate stool burden evident in proximal colon so add cathartics to get her bowels moving again and see if that helps with her nausea and/or rigors. (3) Ventral hernia Qualifiers: Obstruction and gangrene presence: without obstruction or gangrene Qualified Code(s): K43.9 - Ventral hernia without obstruction or gangrene Is this a current diagnosis for this admission?: Yes (4) Hyponatremia Is this a current diagnosis for this admission?: Yes (5) Arthritis of right knee Is this a current diagnosis for this admission?: Yes (6) Acute metabolic encephalopathy Is this a current diagnosis for this admission?: Yes - Time Time Spent with patient: 35 or more minutes Medications reviewed and adjusted accordingly: Yes
--- NOTE | 2017-01-01 10:50 | RADIOLOGY REPORT (SQ) ---
EXAM DESCRIPTION: CHEST PA/LAT COMPLETED DATE/TIME: 01/01/2017 10:26 am REASON FOR STUDY: DYSPNEA, RIGORS, eval for pneumonia COMPARISON: Two-view chest 12/10/2016 AP chest 05/14/2007 EXAM PARAMETERS: NUMBER OF VIEWS: two views TECHNIQUE: Digital Frontal and Lateral radiographic views of the chest acquired. RADIATION DOSE: NA LIMITATIONS: none FINDINGS: LUNGS AND PLEURA: No opacities, masses or pneumothorax. No pleural effusion. MEDIASTINUM AND HILAR STRUCTURES: No masses or contour abnormalities. HEART AND VASCULAR STRUCTURES: Heart normal size. No evidence for failure. BONES: No acute findings. HARDWARE: None in the chest. OTHER: No other significant finding. IMPRESSION: NO SIGNIFICANT RADIOGRAPHIC FINDING IN THE CHEST. TECHNICAL DOCUMENTATION: JOB ID: [id number] [employer]- All Rights Reserved
[2017-01-01] MEDS ORDERED: BISACODYL 10 MG SUPP.RECT PR ONE ×2 (11:30→15:00)
[2017-01-01] MEDS: ACETAMINOPHEN 325 MG TABLET PO PRN ×2 (14:49→22:00)
[2017-01-01] MEDS: SPIRONOLACTONE 25 MG TABLET PO SCH (18:33)
[2017-01-01] MEDS: DILTIAZEM HCL 180 MG CAPSULE.CR PO SCH (18:34)
[2017-01-01] MEDS: OXYCODONE HCL IR 5 MG TABLET PO PRN (20:01)
[2017-01-01] MEDS: PROMETHAZINE HCL 25 MG TABLET PO PRN (22:00)
[2017-01-01] MEDS: RIVAROXABAN 10 MG TABLET PO SCH (22:00)
[2017-01-02] MEDS: LANSOPRAZOLE 30 MG TAB.RAP.DR PO SCH (05:38)
[2017-01-02] MEDS: CLONIDINE HCL 0.2 MG TABLET PO SCH ×3 (05:38→21:29)
[2017-01-02] MEDS: ACETAMINOPHEN 325 MG TABLET PO PRN ×2 (05:39→15:20)
[2017-01-02] MEDS: PROMETHAZINE HCL 25 MG TABLET PO PRN (05:39)
[2017-01-02 07:41] LABS: HEMATOCRIT 29.6 % (36.0-47.0); HEMOGLOBIN 9.9 g/dL (12.0-15.5); HGB HCT DIFFERENCE 0.1; MEAN CORPUSCULAR HEMOGLOBIN 30.9 pg (27.0-33.4); MEAN CORPUSCULAR HGB CONC 33.5 g/dL (32.0-36.0); MEAN CORPUSCULAR VOLUME 92 fl (80-97); RED BLOOD COUNT 3.21 10^6/uL (3.72-5.28); RED CELL DISTRIBUTION WIDTH 13.3 % (11.5-14.0); WHITE BLOOD COUNT 7.1 10^3/uL (4.0-10.5)
[2017-01-02 08:08] LABS: ALANINE AMINOTRANSFERASE 30 U/L (9-52); ALKALINE PHOSPHATASE 103 U/L (38-126); ANION GAP 12 (5-19); ASPARTATE AMINO TRANSFERASE 38 U/L (14-36); BILIRUBIN,DIRECT 0.6 mg/dL (0.0-0.4); BILIRUBIN,TOTAL 0.9 mg/dL (0.2-1.3); BLOOD UREA NITROGEN 14 mg/dL (7-20); CALCIUM 8.3 mg/dL (8.4-10.2); CARBON DIOXIDE 16 mmol/L (22-30); CHLORIDE 96 mmol/L (98-107); CREATININE RESULT 0.95 mg/dL (0.52-1.25); GLUCOSE 89 mg/dL (75-110); POTASSIUM 4.2 mmol/L (3.6-5.0); SODIUM 123.8 mmol/L (137-145); TOTAL PROTEIN 5.8 g/dL (6.3-8.2)
[2017-01-02 08:13] LABS: BAND NEUTROPHILS % (MANUAL) 1 % (3-5); BASOPHILS % (MANUAL) 0 % (0-2); EOSINOPHILS % (MANUAL) 0 % (0-6); LYMPHOCYTES % (MANUAL) 3 % (13-45); TOTAL CELLS COUNTED 100
[2017-01-02 08:14] LABS: RBC MORPHOLOGY COMMENT NORMO-CYTIC/CHROMIC
[2017-01-02] MEDS: PRENATAL VITAMIN W-O CA NO5/FE FUMARATE/FA CAPSULE PO SCH (10:30)
[2017-01-02] MEDS: SENNOSIDES/DOCUSATE 8.6-50 MG 1 EACH TABLET PO SCH ×2 (10:30→17:10)
[2017-01-02] MEDS: CHOLECALCIFEROL (D3) 1,000 UNIT TABLET PO SCH (10:30)
--- NOTE | 2017-01-02 11:17 | PDOC PROGRESS REPORT ---
Subjective Progress Note for:: 01/02/17 Subjective:: reason for f/u visit: medical management, nausea/vomiting, confusion, rigors hospital course: ALISA PORTER is a 76 year old female aggressive right knee pain and functional disability secondary osteoarthritis. She is admitted for an elective right knee arthroplasty, which she seemed to tolerate without difficulty until this morning. Her daughter reports that she started "talking out of her head", not making any sense, seeing things or confusing things like the pat of butter as remote control for the TV and she has never had anything like this before. she is normally high functioning and able to care for herself. The patient recognizes she is at times confused but can tell me all the details related to this hospitalization, date and time at present. daughter also notes she vomited this morning the contents of last night's dinner seemingly undigested but patient denies abdominal pain, dysphagia, odynophagia or difficulty with heartburn and states the dinner went down without difficulty. she didn't sleep well last night, falling asleep at 0400 this morning. she thinks the pain meds are too strong, previously taking oxyER with oxyIR for breakthrough pain. ironically states her knee pain is well controlled at present. she cannot rememeber her last BM but none since her arrival here. she denies fevers/chills, dysuria, TERRAZAS, dizziness, n/t, unilateral weakness, speech or swallow difficulties, chest pain or palpitations. review of the chart shows her serum Na is trending down, she was on bactrim but not clear why but possibly related to bacteruria seen on [facility] late November and her WBCs trended up. she spike a temp 101.4 12/30 and remains low grade at present 99.5 with persistent rigors for me at the bedside. still nauseous and can only keep a few bites down before retching. she denies pain except in the knee but "that is expected, I just had surgery". still no BM but no abdominal pain, odynophagia or dysphagia. episodic confusion has resolved according to the staff. daughter isn't present at time of my visit. she spike another fever yesterday to 102.6 with intense rigors and nausea that responded to tylenol and hasn't recurred; at the time she noted her Rt knee to be "red hot like a poker" with increased pain and stiffness, that too is better this morning. ROS: all systems reviewed, see above, remaining systems negative Physical Exam Vital Signs: Temp Pulse Resp BP Pulse Ox 98.9 F 76 16 119/57 L 100 01/02/17 07:48 01/02/17 07:48 01/02/17 07:48 01/02/17 07:48 01/02/17 07:48 Intake & Output 01/01/17 01/02/17 01/03/17 06:59 06:59 06:59 Intake Total 1400 1920 Output Total 350 Balance 1050 1920 Weight 73.5 kg 76 kg General appearance: PRESENT: no acute distress, well-developed, well-nourished, sitting in bedside chair Head exam: PRESENT: atraumatic, normocephalic Eye exam: PRESENT: EOMI. ABSENT: conjunctival injection, scleral icterus Mouth exam: PRESENT: moist, neck supple Neck exam: PRESENT: full ROM. ABSENT: JVD, tenderness, tracheal deviation Respiratory exam: PRESENT: clear to auscultation steffen. ABSENT: accessory muscle use Cardiovascular exam: PRESENT: RRR. ABSENT: systolic murmur Pulses: PRESENT: normal radial pulses, normal dorsalis pedis pul Vascular exam: PRESENT: normal capillary refill GI/Abdominal exam: PRESENT: hernia - large ventral hernia along vertical linear scar just above the umbilicus containing fat and without pain, normal bowel sounds, soft. ABSENT: tenderness Extremities exam: PRESENT: joint swelling - right with picot in place and suture line c/d/i, tenderness - along the surgical site;mild warmth to the knee compared to left and right leg more swollen than left but not unexpected after this surgery Neurological exam: PRESENT: alert, awake, oriented to person, oriented to place , oriented to time Psychiatric exam: PRESENT: appropriate affect, normal mood. ABSENT: agitated Focused psych exam: ABSENT: psychomotor agitation, restlessness Skin exam: PRESENT: warm. ABSENT: rash Results Laboratory Results: 01/02/17 07:06 01/02/17 07:06 01/02/17 01/02/17 01/02/17 07:06 07:06 07:06 WBC 7.1 RBC 3.21 L Hgb 9.9 L Hct 29.6 L MCV 92 MCH 30.9 MCHC 33.5 RDW 13.3 Plt Count 248 Seg Neutrophils % Not Reportable Lymphocytes % Not Reportable Monocytes % Not Reportable Eosinophils % Not Reportable Basophils % Not Reportable Absolute Neutrophils Not Reportable Absolute Lymphocytes Not Reportable Absolute Monocytes Not Reportable Absolute Eosinophils Not Reportable Absolute Basophils Not Reportable Sodium 123.8 L Potassium 4.2 Chloride 96 L Carbon Dioxide 16 L Anion Gap 12 BUN 14 Creatinine 0.95 Est GFR ( Amer) > 60 Est GFR (Non-Af Amer) 57 L Glucose 89 Lactic Acid Calcium 8.3 L Total Bilirubin 0.9 AST 38 H ALT 30 Alkaline Phosphatase 103 C-Reactive Protein 172.9 H Total Protein 5.8 L Albumin 3.0 L 01/02/17 09:17 WBC RBC Hgb Hct MCV MCH MCHC RDW Plt Count Seg Neutrophils % Lymphocytes % Monocytes % Eosinophils % Basophils % Absolute Neutrophils Absolute Lymphocytes Absolute Monocytes Absolute Eosinophils Absolute Basophils Sodium Potassium Chloride Carbon Dioxide Anion Gap BUN Creatinine Est GFR ( Amer) Est GFR (Non-Af Amer) Glucose Lactic Acid 0.7 Calcium Total Bilirubin AST ALT Alkaline Phosphatase C-Reactive Protein Total Protein Albumin 12/31/16 17:25 Clean Catch Midstream Urine Culture - Final NO GROWTH 2 DAYS Impressions: Knee X-Ray 12/29/16 09:06 IMPRESSION: SATISFACTORY POSTOPERATIVE RIGHT KNEE. Abdomen/Pelvis CT 12/31/16 17:50 IMPRESSION: NO ACUTE FINDING IN THE ABDOMEN OR PELVIS ON CT SCAN WITH IV CONTRAST. 6.5 cm fat containing infra umbilical ventral hernia. No bowel involvement. Chest X-Ray 01/01/17 00:00 IMPRESSION: NO SIGNIFICANT RADIOGRAPHIC FINDING IN THE CHEST. Assessment & Plan - Diagnosis (1) Rigors Is this a current diagnosis for this admission?: Yes (2) Vomiting Qualifiers: Vomiting type: unspecified Vomiting Intractability: non-intractable Nausea presence: with nausea Qualified Code(s): R11.2 - Nausea with vomiting, unspecified Is this a current diagnosis for this admission?: Yes (3) Ventral hernia Qualifiers: Obstruction and gangrene presence: without obstruction or gangrene Qualified Code(s): K43.9 - Ventral hernia without obstruction or gangrene Is this a current diagnosis for this admission?: Yes (4) Hyponatremia Is this a current diagnosis for this admission?: Yes (5) Arthritis of right knee Is this a current diagnosis for this admission?: Yes (6) Acute metabolic encephalopathy Is this a current diagnosis for this admission?: Yes - Time Time Spent with patient: 25-34 minutes Anticipated discharge: Home Within: within 24 hours - Plan Summary Plan Summary: still have temps but no clear source, bactrim stopped just yesterday and may have masked the source for now; her cbc is showing some bands forming and she is more acidotic on her renal panel. will add crp and lactic acid and I really feel like she should stay another day for observation and continue to trend her temp curve and labs. hopefully will improve enough by morning to go home Tuesday , she does look better but in a worrisome place from my standpoint. I am, however, only a senior telecommunications consultant; ultimately discharge dispo per dr santiago as the attending.
[2017-01-02] MEDS ORDERED: BISACODYL 5 MG TABEC PO ONE (11:37)
[2017-01-02] MEDS: DILTIAZEM HCL 180 MG CAPSULE.CR PO SCH (17:10)
[2017-01-02] MEDS: SPIRONOLACTONE 25 MG TABLET PO SCH (17:10)
[2017-01-02] MEDS: RIVAROXABAN 10 MG TABLET PO SCH (21:27)
[2017-01-03] MEDS: OXYCODONE HCL IR 5 MG TABLET PO PRN (00:45)
[2017-01-03] MEDS: LANSOPRAZOLE 30 MG TAB.RAP.DR PO SCH (05:07)
[2017-01-03] MEDS: CLONIDINE HCL 0.2 MG TABLET PO SCH ×3 (05:07→22:41)
[2017-01-03] MEDS: PROMETHAZINE HCL 25 MG TABLET PO PRN (05:07)
[2017-01-03 06:50] LABS: ABSOLUTE EOSINOPHILS # (AUTO) 0.1 10^3/uL (0.0-0.6); ABSOLUTE LYMPHOCYTES (AUTO) 0.5 10^3/uL (0.5-4.7); ABSOLUTE MONOCYTES (AUTO) 0.6 10^3/uL (0.1-1.4); ABSOLUTE NEUT (AUTO) 7.3 10^3/uL (1.7-8.2); BASOPHILS % (AUTO) 0.3 % (0-2); EOSINOPHILS % (AUTO) 1.5 % (0-6); HEMATOCRIT 27.9 % (36.0-47.0); HEMOGLOBIN 9.6 g/dL (12.0-15.5); HGB HCT DIFFERENCE 0.9; LYMPHOCYTES % (AUTO) 5.6 % (13-45); MEAN CORPUSCULAR HEMOGLOBIN 31.1 pg (27.0-33.4); MEAN CORPUSCULAR HGB CONC 34.3 g/dL (32.0-36.0); MEAN CORPUSCULAR VOLUME 91 fl (80-97); MONOCYTES % (AUTO) 7.1 % (3-13); RED BLOOD COUNT 3.08 10^6/uL (3.72-5.28); RED CELL DISTRIBUTION WIDTH 13.5 % (11.5-14.0); SEGMENTED NEUTROPHILS % (AUTO) 85.5 % (42-78); WHITE BLOOD COUNT 8.5 10^3/uL (4.0-10.5)
[2017-01-03 07:13] LABS: ANION GAP 14 (5-19); BLOOD UREA NITROGEN 15 mg/dL (7-20); CALCIUM 8.3 mg/dL (8.4-10.2); CARBON DIOXIDE 18 mmol/L (22-30); CHLORIDE 91 mmol/L (98-107); CREATININE RESULT 0.75 mg/dL (0.52-1.25); GLUCOSE 74 mg/dL (75-110); MAGNESIUM 1.8 mg/dL (1.6-2.3); POTASSIUM 3.9 mmol/L (3.6-5.0); SODIUM 123.2 mmol/L (137-145)
[2017-01-03 07:29] LABS: C-REACTIVE PROTEIN 136.8 mg/L (<10.0)
[2017-01-03] MEDS ORDERED: DEXTROSE 40% GEL 15 GM TUBE PO PRN ×2 (08:34)
[2017-01-03] MEDS ORDERED: GLUCAGON,HUMAN RECOMB 1 MG INJ SUBCUT PRN (08:34)
[2017-01-03] MEDS ORDERED: DEXTROSE 50%-WATER 25 GM/50 ML DISP.SYRIN IV PRN ×2 (08:34)
[2017-01-03] MEDS: CHOLECALCIFEROL (D3) 1,000 UNIT TABLET PO SCH (09:52)
[2017-01-03] MEDS: PRENATAL VITAMIN W-O CA NO5/FE FUMARATE/FA CAPSULE PO SCH (09:53)
[2017-01-03] MEDS: SENNOSIDES/DOCUSATE 8.6-50 MG 1 EACH TABLET PO SCH ×2 (09:53→17:39)
--- NOTE | 2017-01-03 10:24 | EKG REPORT ---
SEVERITY:- ABNORMAL ECG - SINUS RHYTHM PROBABLE LEFT ATRIAL ABNORMALITY LEFT ANTERIOR FASCICULAR BLOCK ABNRM R PROG, CONSIDER ASMI OR LEAD PLACEMENT : Confirmed by: Marilee Gurrola MD 03-Jan-2017 10:23:31
--- NOTE | 2017-01-03 15:55 | PDOC PROGRESS REPORT ---
Subjective Progress Note for:: 01/03/17 Subjective:: reason for f/u visit: medical management, nausea/vomiting, confusion, rigors hospital course: ALISA PORTER is a 76 year old female aggressive right knee pain and functional disability secondary osteoarthritis. She is admitted for an elective right knee arthroplasty, which she seemed to tolerate without difficulty until this morning. Her daughter reports that she started "talking out of her head", not making any sense, seeing things or confusing things like the pat of butter as remote control for the TV and she has never had anything like this before. she is normally high functioning and able to care for herself. The patient recognizes she is at times confused but can tell me all the details related to this hospitalization, date and time at present. daughter also notes she vomited this morning the contents of last night's dinner seemingly undigested but patient denies abdominal pain, dysphagia, odynophagia or difficulty with heartburn and states the dinner went down without difficulty. she didn't sleep well last night, falling asleep at 0400 this morning. she thinks the pain meds are too strong, previously taking oxyER with oxyIR for breakthrough pain. ironically states her knee pain is well controlled at present. she cannot rememeber her last BM but none since her arrival here. she denies fevers/chills, dysuria, TERRAZAS, dizziness, n/t, unilateral weakness, speech or swallow difficulties, chest pain or palpitations. review of the chart shows her serum Na is trending down, she was on bactrim but not clear why but possibly related to bacteruria seen on [facility] late November and her WBCs trended up. she spike a temp 101.4 12/30 and remains low grade at present 99.5 with persistent rigors for me at the bedside. still nauseous and can only keep a few bites down before retching. she denies pain except in the knee but "that is expected, I just had surgery". still no BM but no abdominal pain, odynophagia or dysphagia. episodic confusion has resolved according to the staff. daughter isn't present at time of my visit. she spike another fever yesterday to 102.6 with intense rigors and nausea that responded to tylenol and hasn't recurred; at the time she noted her Rt knee to be "red hot like a poker" with increased pain and stiffness, that too seems better this morning. Unfortunately she reports nausea and retching for the last 8 hours, loss of appetite and feeling of general malaise. she denies fevers/chills, no more chest pain, no palpitations, diarrhea, hematemesis, cough with phlegm. she reports her hernia seems larger and in general she just can't seem to get better. ROS: all systems reviewed, see above, remaining systems negative Physical Exam Vital Signs: Temp Pulse Resp BP Pulse Ox 98.8 F 82 18 154/71 H 99 01/03/17 11:57 01/03/17 11:57 01/03/17 11:57 01/03/17 11:57 01/03/17 11:57 Intake & Output 01/02/17 01/03/17 01/04/17 06:59 06:59 06:59 Intake Total 0 603 Balance 1920 603 Weight 76 kg 81.9 kg General appearance: PRESENT:mild distress and clutching emesis bag when I arrived, well-developed, well-nourished, sitting upright in bed Head exam: PRESENT: atraumatic, normocephalic Eye exam: PRESENT: EOMI. ABSENT: conjunctival injection, scleral icterus Mouth exam: PRESENT: dry, neck supple Neck exam: PRESENT: full ROM. ABSENT: JVD, tenderness, tracheal deviation Respiratory exam: PRESENT: clear to auscultation steffen. ABSENT: accessory muscle use Cardiovascular exam: PRESENT: RRR. ABSENT: systolic murmur Pulses: PRESENT: normal radial pulses, normal dorsalis pedis pul Vascular exam: PRESENT: normal capillary refill GI/Abdominal exam: PRESENT: hernia - large ventral hernia along vertical linear scar just above the umbilicus containing a larger collection of fat and another loop of bowel but without pain; I wasn't able to reduce it this time. diminished high pitched bowel sounds, soft. ABSENT: tenderness Extremities exam: PRESENT: joint swelling - right with picot in place and suture line c/d/i, tenderness - along the surgical site;mild warmth to the knee compared to left and right leg more swollen than left but not unexpected after this surgery Neurological exam: PRESENT: alert, awake, oriented to person, oriented to place , oriented to time Psychiatric exam: PRESENT: appropriate affect, normal mood. ABSENT: agitated Focused psych exam: ABSENT: psychomotor agitation, restlessness Skin exam: PRESENT: warm. ABSENT: rash Results Laboratory Results: 01/03/17 06:15 01/03/17 06:15 01/03/17 01/03/17 06:15 06:15 WBC 8.5 RBC 3.08 L Hgb 9.6 L Hct 27.9 L MCV 91 MCH 31.1 MCHC 34.3 RDW 13.5 Plt Count 279 Seg Neutrophils % 85.5 H Lymphocytes % 5.6 L Monocytes % 7.1 Eosinophils % 1.5 Basophils % 0.3 Absolute Neutrophils 7.3 Absolute Lymphocytes 0.5 Absolute Monocytes 0.6 Absolute Eosinophils 0.1 Absolute Basophils 0.0 Sodium 123.2 L Potassium 3.9 Chloride 91 L Carbon Dioxide 18 L Anion Gap 14 BUN 15 Creatinine 0.75 Est GFR ( Amer) > 60 Est GFR (Non-Af Amer) > 60 Glucose 74 L Calcium 8.3 L Magnesium 1.8 C-Reactive Protein 136.8 H Impressions: Abdomen/Pelvis CT 12/31/16 17:50 IMPRESSION: NO ACUTE FINDING IN THE ABDOMEN OR PELVIS ON CT SCAN WITH IV CONTRAST. 6.5 cm fat containing infra umbilical ventral hernia. No bowel involvement. Status: Image reviewed by me Assessment & Plan - Diagnosis (1) Vomiting Qualifiers: Vomiting type: unspecified Vomiting Intractability: non-intractable Nausea presence: with nausea Qualified Code(s): R11.2 - Nausea with vomiting, unspecified Is this a current diagnosis for this admission?: YesPlan: worse today, seemed to improve after I reduced her hernia the other day but has worsened again; possibly related to opiates and/or bactrim Tx as either can be quite nauseating but both have been reduced or stopped altogether. no obstruction on imaging and she has had numerous BMs over the last 24hrs by her own description. Honestly I don't see another obvious source than her hernia and if thats not the source then its odd that symptoms got better after it was reduced though I suppose that could have been coincidence. Nevertheless, she should not d/c home at this time as she cannot keep anything down without first using antiemetics. I spoke with dr faustin who agreed to evaluate her hernia at first opportunity. continue supportive care for now. (2) Ventral hernia Qualifiers: Obstruction and gangrene presence: without obstruction or gangrene Qualified Code(s): K43.9 - Ventral hernia without obstruction or gangrene Is this a current diagnosis for this admission?: YesPlan: as above (3) Hyponatremia Is this a current diagnosis for this admission?: YesPlan: probably due to lack of oral intake, possibly adverse reaction to Bactrim Tx; continue hydrate with NS and roscoe in am. (4) Rigors Is this a current diagnosis for this admission?: YesPlan: she certainly behaves like someone with infection somewhere but I don't see a clear source, perhaps masked somewhat by the Bactrim she was on (d/c'd 01/01), still not sure why. her urine was clear, ct a/p shows no source and no bowel obstruction, no significant atelectasis either on visualized portions of the lungs that I can see. leukocytosis resolved, lfts and lipase unremarkable. stopped the bactrim, removing it as confounder; sent for blood and urine cultures which show no growth, CXR nothing acute and never found a source for starting other abx. (5) Arthritis of right knee Is this a current diagnosis for this admission?: Yes (6) Acute metabolic encephalopathy Is this a current diagnosis for this admission?: YesPlan: seems transient, back to baseline; likely multifactorial for the reasons already outlined above. - Time Time Spent with patient: 25-34 minutes Medications reviewed and adjusted accordingly: Yes
--- NOTE | 2017-01-03 17:09 | CONSULTATION REPORT E ---
Consultation Report NAME: ALISA PORTER : 1940 AGE: 76Y DATE: 01/03/2017 422 A TO: DARIUSZ MCCARTY M.D. FROM: Requesting Physician Patient seen at the request of Von Beavers. CHIEF COMPLAINT: Refractory nausea. REPORT OF CONSULTATION: The patient is a 76-year-old white female now 1 week status post open right total knee replacement by Dr. Nevarez. Patient did well initially and then had bouts of confusion, nausea, vomiting, and anorexia. She was worked up with CT scan of the abdomen and pelvis without oral contrast which showed an abdominal wall hernia. No other pathologic findings. Patient was treated with antiemetics and discontinuation of Bactrim with transient improvement in her symptoms. She had a large bowel movement over the last 24 hours and felt better but is still having nausea. She denies abdominal pain. Last colonoscopy was in the last 5 years and reportedly normal. She did not know she had an abdominal wall hernia. PAST MEDICAL AND SURGICAL HISTORY: Can be found in history and physical document. REVIEW OF SYSTEMS: Does not apply. MEDICATIONS: As documented. ALLERGIES: None known. PHYSICAL EXAMINATION: Patient examined in room 422. VITAL SIGNS: Stable. GENERAL: Patient is awake, alert, and oriented x4. NEUROLOGIC: No focal deficits. SKIN: Turgor is normal. LUNGS: Clear to auscultation bilaterally. HEART: Without murmur or gallop. ABDOMEN: Examined. It is soft. No peritoneal signs. No rigidity. There is a periumbilical hernia which cannot be reduced completely. This does reproduce some of her nausea. There are no overlying skin changes. LABORATORY PROFILE: Shows the sodium of 123, bicarb of 18. Urinalysis 3 days ago: Trace ketones. CBC shows a white blood cell count of 8500, hemoglobin 9.6. Independent interpretation CT scan of the abdomen and pelvis without oral contrast from 12/31/2016 shows extensive amount of stool in the right colon and transverse colon. The gallbladder is present. Scoliotic changes and minimal atherosclerotic changes to the aorta noted. There is an infraumbilical hernia with fat, likely omentum. IMPRESSION: 1. Postoperative nausea of unexplained etiology. 2. Status post right total knee replacement. 3. Minimally symptomatic ventral wall hernia with incarcerated omentum, likely chronic RECOMMENDATIONS: 1. The exact etiology of the patient's nausea is unclear. She could have chronic cholecystitis with cholesterolosis and a HIDA scan could be obtained to sort this out although subjecting the patient to a second operation for such a soft finding may not be in her best interest. 2. Whether the ventral wall hernia is causing her nausea is somewhat unclear as well. The patient has had the mass in that area but did not know it was a hernia for some time. 3. I spoke with Dr. Beavers, who recommended a nonoperative approach at this time; I advocated this with the patient and family and they are comfortable with waiting and seeing as well. DICTATING PHYSICIAN: DARIUSZ MCCARTY M.D. [id number] PHY#: [id number] ID: [id number] JOB#: [id number] ACCT: [id number] cc:DARIUSZ MCCARTY M.D. > MTDD
[2017-01-03] MEDS: DILTIAZEM HCL 180 MG CAPSULE.CR PO SCH (17:39)
[2017-01-03] MEDS: SPIRONOLACTONE 25 MG TABLET PO SCH (17:41)
[2017-01-03] MEDS: RIVAROXABAN 10 MG TABLET PO SCH (22:41)
[2017-01-04] MEDS: OXYCODONE HCL IR 5 MG TABLET PO PRN (00:15)
[2017-01-04 04:18] LABS: ABSOLUTE EOSINOPHILS # (AUTO) 0.3 10^3/uL (0.0-0.6); ABSOLUTE LYMPHOCYTES (AUTO) 1.3 10^3/uL (0.5-4.7); ABSOLUTE MONOCYTES (AUTO) 0.9 10^3/uL (0.1-1.4); BASOPHILS % (AUTO) 0.6 % (0-2); EOSINOPHILS % (AUTO) 3.4 % (0-6); HEMATOCRIT 29.5 % (36.0-47.0); HEMOGLOBIN 10.2 g/dL (12.0-15.5); HGB HCT DIFFERENCE 1.1; LYMPHOCYTES % (AUTO) 14.7 % (13-45); MEAN CORPUSCULAR HEMOGLOBIN 31.1 pg (27.0-33.4); MEAN CORPUSCULAR HGB CONC 34.5 g/dL (32.0-36.0); MEAN CORPUSCULAR VOLUME 90 fl (80-97); MONOCYTES % (AUTO) 10.2 % (3-13); RED BLOOD COUNT 3.27 10^6/uL (3.72-5.28); RED CELL DISTRIBUTION WIDTH 13.3 % (11.5-14.0); SEGMENTED NEUTROPHILS % (AUTO) 71.1 % (42-78); WHITE BLOOD COUNT 8.5 10^3/uL (4.0-10.5)
[2017-01-04 04:34] LABS: ALANINE AMINOTRANSFERASE 38 U/L (9-52); ALBUMIN 3.1 g/dL (3.5-5.0); ALKALINE PHOSPHATASE 101 U/L (38-126); ANION GAP 13 (5-19); ASPARTATE AMINO TRANSFERASE 29 U/L (14-36); BILIRUBIN,DIRECT 0.5 mg/dL (0.0-0.4); BILIRUBIN,TOTAL 1.1 mg/dL (0.2-1.3); BLOOD UREA NITROGEN 15 mg/dL (7-20); CALCIUM 8.4 mg/dL (8.4-10.2); CARBON DIOXIDE 20 mmol/L (22-30); CHLORIDE 94 mmol/L (98-107); CREATININE RESULT 0.68 mg/dL (0.52-1.25); GLUCOSE 76 mg/dL (75-110); LIPASE 297.8 U/L (23-300); MAGNESIUM 1.9 mg/dL (1.6-2.3); PHOSPHORUS 3.2 mg/dL (2.5-4.5); POTASSIUM 3.7 mmol/L (3.6-5.0); TOTAL PROTEIN 6.2 g/dL (6.3-8.2)
[2017-01-04] MEDS: CLONIDINE HCL 0.2 MG TABLET PO SCH ×3 (06:52→22:26)
[2017-01-04] MEDS: LANSOPRAZOLE 30 MG TAB.RAP.DR PO SCH (06:52)
[2017-01-04] MEDS: NORMAL SALINE 1000 ML 1,000 ML IV PRN (06:57)
[2017-01-04] MEDS: CHOLECALCIFEROL (D3) 1,000 UNIT TABLET PO SCH (10:32)
[2017-01-04] MEDS: PRENATAL VITAMIN W-O CA NO5/FE FUMARATE/FA CAPSULE PO SCH (10:32)
[2017-01-04] MEDS: SENNOSIDES/DOCUSATE 8.6-50 MG 1 EACH TABLET PO SCH ×2 (10:32→17:53)
--- NOTE | 2017-01-04 11:29 | PROGRESS NOTE E ---
Progress Note NAME: ALISA PORTER : 1940 AGE: 76Y DATE: 01/04/2017 ROOM: 427 Patient denies any nausea or vomiting this morning. The abdomen is soft and nontender. She still has the umbilical hernia with no tenderness, though with deep palpation, she claims there is some discomfort. There is no redness along the skin. In view of the relative asymptomatic umbilical hernia at this time, we will continue to hold off doing any surgery. However, patient was informed that if she develops pains or nausea and vomiting again that she is to come to the emergency room for evaluation of the hernia. DICTATING PHYSICIAN: ELISABETH DECKER M.D. [id number] PHY#: [id number] ID: [id number] JOB#: [id number] ACCT: [id number] cc: >
--- NOTE | 2017-01-04 16:48 | PDOC PROGRESS REPORT ---
Subjective Progress Note for:: 01/04/17 Subjective:: The patient is doing much better today. We were consulted yesterday this patient was acutely confused with nausea vomiting and abdominal pain. Her abdominal pain resolved after her ventral hernia was reduced. She has had no further episodes of nausea and vomiting. She is completely back to her normal self today and doing much better. Overall she denies fever chills. No chest pain, shortness of breath or heart palpitations. No further episodes of nausea or vomiting. She is quite anxious to start a diet. She has had no abdominal pain today. No dysuria, frequency or hematuria Physical Exam Vital Signs: Temp Pulse Resp BP Pulse Ox 98.6 F 78 16 128/61 H 100 01/04/17 08:10 01/04/17 08:10 01/04/17 08:10 01/04/17 08:10 01/04/17 08:10 Intake & Output 01/03/17 01/04/17 01/05/17 06:59 06:59 06:59 Intake Total 603 2029 Balance 603 2029 Weight 81.9 kg 79.1 kg General appearance: PRESENT: no acute distress, well-developed, well-nourished Head exam: PRESENT: atraumatic, normocephalic Mouth exam: PRESENT: moist Respiratory exam: PRESENT: clear to auscultation steffen. ABSENT: rales, rhonchi, wheezes Cardiovascular exam: PRESENT: RRR, +S1, +S2 GI/Abdominal exam: PRESENT: hernia, normal bowel sounds, soft. ABSENT: tenderness Extremities exam: PRESENT: other - Right knee has jl in place. Her right leg is little bit swollen. Left lower extremity with no clubbing cyanosis or edema Neurological exam: PRESENT: alert, awake, oriented to person, oriented to place , oriented to time, oriented to situation Psychiatric exam: PRESENT: appropriate affect Skin exam: PRESENT: dry, warm Results Laboratory Results: 01/04/17 04:05 01/04/17 04:05 01/04/17 01/04/17 04:05 04:05 WBC 8.5 RBC 3.27 L Hgb 10.2 L Hct 29.5 L MCV 90 MCH 31.1 MCHC 34.5 RDW 13.3 Plt Count 334 Seg Neutrophils % 71.1 Lymphocytes % 14.7 Monocytes % 10.2 Eosinophils % 3.4 Basophils % 0.6 Absolute Neutrophils 6.0 Absolute Lymphocytes 1.3 Absolute Monocytes 0.9 Absolute Eosinophils 0.3 Absolute Basophils 0.0 Sodium 127.0 L Potassium 3.7 Chloride 94 L Carbon Dioxide 20 L Anion Gap 13 BUN 15 Creatinine 0.68 Est GFR ( Amer) > 60 Est GFR (Non-Af Amer) > 60 Glucose 76 Calcium 8.4 Phosphorus 3.2 Magnesium 1.9 Total Bilirubin 1.1 AST 29 ALT 38 Alkaline Phosphatase 101 Total Protein 6.2 L Albumin 3.1 L Lipase 297.8 Impressions: Knee X-Ray 12/29/16 09:06 IMPRESSION: SATISFACTORY POSTOPERATIVE RIGHT KNEE. Abdomen/Pelvis CT 12/31/16 17:50 IMPRESSION: NO ACUTE FINDING IN THE ABDOMEN OR PELVIS ON CT SCAN WITH IV CONTRAST. 6.5 cm fat containing infra umbilical ventral hernia. No bowel involvement. Chest X-Ray 01/01/17 00:00 IMPRESSION: NO SIGNIFICANT RADIOGRAPHIC FINDING IN THE CHEST. Assessment & Plan - Diagnosis (1) Acute metabolic encephalopathy Is this a current diagnosis for this admission?: YesPlan: Resolved. It is unclear what the cause of her encephalopathy was. She did have hyponatremia which is improving with IV fluid hydration. It could be due to medications and also severe abdominal pain with nausea and vomiting. In any event she is back to her cognitive baseline. Infectious workup was negative. (2) Arthritis of right knee Is this a current diagnosis for this admission?: YesPlan: She seems to have tolerated her procedure quite well. She is to be discharged home with home health therapy. (3) Hyponatremia Is this a current diagnosis for this admission?: YesPlan: This could have been contributing to her encephalopathy. Improved with IV fluids which will continue overnight. (4) Rigors Is this a current diagnosis for this admission?: Yes (5) Ventral hernia Qualifiers: Obstruction and gangrene presence: without obstruction or gangrene Qualified Code(s): K43.9 - Ventral hernia without obstruction or gangrene Is this a current diagnosis for this admission?: YesPlan: No surgical intervention is felt to be necessary at this point. (6) Vomiting Qualifiers: Vomiting type: unspecified Vomiting Intractability: non-intractable Nausea presence: with nausea Qualified Code(s): R11.2 - Nausea with vomiting, unspecified Is this a current diagnosis for this admission?: YesPlan: Her vomiting resolved after her ventral hernia was reduced. - Time Time Spent with patient: 25-34 minutes - Plan Summary Plan Summary: Overall the patient is greatly improved. We are going to advance her diet today. Make sure that she can ambulate with physical therapy and continue IV fluids overnight. She will likely be stable for discharge in the morning.
[2017-01-04] MEDS: SPIRONOLACTONE 25 MG TABLET PO SCH (17:53)
[2017-01-04] MEDS: DILTIAZEM HCL 180 MG CAPSULE.CR PO SCH (17:53)
[2017-01-04] MEDS: RIVAROXABAN 10 MG TABLET PO SCH (22:26)
[2017-01-05] MEDS: CLONIDINE HCL 0.2 MG TABLET PO SCH ×3 (05:51→22:40)
[2017-01-05] MEDS: LANSOPRAZOLE 30 MG TAB.RAP.DR PO SCH ×2 (05:51→17:51)
[2017-01-05 06:22] LABS: ABSOLUTE BASOPHILS # (AUTO) 0.1 10^3/uL (0.0-0.2); ABSOLUTE EOSINOPHILS # (AUTO) 0.3 10^3/uL (0.0-0.6); ABSOLUTE LYMPHOCYTES (AUTO) 1.6 10^3/uL (0.5-4.7); BASOPHILS % (AUTO) 0.6 % (0-2); EOSINOPHILS % (AUTO) 3.5 % (0-6); HEMATOCRIT 29.6 % (36.0-47.0); HEMOGLOBIN 10.1 g/dL (12.0-15.5); HGB HCT DIFFERENCE 0.7; MEAN CORPUSCULAR HEMOGLOBIN 31.1 pg (27.0-33.4); MEAN CORPUSCULAR HGB CONC 34.2 g/dL (32.0-36.0); MEAN CORPUSCULAR VOLUME 91 fl (80-97); MONOCYTES % (AUTO) 11.4 % (3-13); RED BLOOD COUNT 3.27 10^6/uL (3.72-5.28); RED CELL DISTRIBUTION WIDTH 13.3 % (11.5-14.0); SEGMENTED NEUTROPHILS % (AUTO) 66.5 % (42-78)
[2017-01-05 06:30] LABS: ANION GAP 12 (5-19); BLOOD UREA NITROGEN 13 mg/dL (7-20); CALCIUM 8.5 mg/dL (8.4-10.2); CARBON DIOXIDE 21 mmol/L (22-30); CHLORIDE 96 mmol/L (98-107); CREATININE RESULT 0.65 mg/dL (0.52-1.25); GLUCOSE 83 mg/dL (75-110); POTASSIUM 3.4 mmol/L (3.6-5.0)
--- NOTE | 2017-01-05 07:33 | PDOC PROGRESS REPORT ---
Subjective Progress Note for:: 01/05/17 Subjective:: "My bowels are working again" Physical Exam Vital Signs: Temp Pulse Resp BP Pulse Ox 36.3 C 66 16 129/48 H 100 01/05/17 01:13 01/05/17 01:13 01/05/17 01:13 01/05/17 01:13 01/05/17 01:13 Intake & Output 01/04/17 01/05/17 01/06/17 06:59 06:59 06:59 Intake Total 2028 291 Balance 2028 291 Weight 79.1 kg General appearance: PRESENT: no acute distress Head exam: PRESENT: normocephalic Respiratory exam: PRESENT: unlabored Cardiovascular exam: PRESENT: RRR Pulses: PRESENT: +1 pedal pulses bilateral Vascular exam: PRESENT: normal capillary refill GI/Abdominal exam: PRESENT: soft Rectal exam: PRESENT: deferred Extremities exam: PRESENT: other - Right knee dressing is clean dry and intact. Neurological exam: PRESENT: alert, awake, oriented to person, oriented to place , oriented to time, oriented to situation. ABSENT: motor sensory deficit Psychiatric exam: PRESENT: appropriate affect, normal mood. ABSENT: homicidal ideation, suicidal ideation Skin exam: PRESENT: dry, intact, warm. ABSENT: cyanosis, rash Results Laboratory Results: 01/05/17 05:27 01/05/17 05:27 01/05/17 01/05/17 05:27 05:27 WBC 9.0 RBC 3.27 L Hgb 10.1 L Hct 29.6 L MCV 91 MCH 31.1 MCHC 34.2 RDW 13.3 Plt Count 391 Seg Neutrophils % 66.5 Lymphocytes % 18.0 Monocytes % 11.4 Eosinophils % 3.5 Basophils % 0.6 Absolute Neutrophils 6.0 Absolute Lymphocytes 1.6 Absolute Monocytes 1.0 Absolute Eosinophils 0.3 Absolute Basophils 0.1 Sodium 129.0 L Potassium 3.4 L Chloride 96 L Carbon Dioxide 21 L Anion Gap 12 BUN 13 Creatinine 0.65 Est GFR ( Amer) > 60 Est GFR (Non-Af Amer) > 60 Glucose 83 Calcium 8.5 Impressions: Knee X-Ray 12/29/16 09:06 IMPRESSION: SATISFACTORY POSTOPERATIVE RIGHT KNEE. Abdomen/Pelvis CT 12/31/16 17:50 IMPRESSION: NO ACUTE FINDING IN THE ABDOMEN OR PELVIS ON CT SCAN WITH IV CONTRAST. 6.5 cm fat containing infra umbilical ventral hernia. No bowel involvement. Chest X-Ray 01/01/17 00:00 IMPRESSION: NO SIGNIFICANT RADIOGRAPHIC FINDING IN THE CHEST. Status: Imported from PACS Assessment & Plan - Diagnosis (1) Arthritis of right knee Is this a current diagnosis for this admission?: YesPlan: 76-year-old white female now postop day 7 from right knee arthroplasty with many postoperative issues being addressed by medicine. Patient will be discharged per medicine's discretion. - Time Time Spent with patient: 15-24 minutes Anticipated discharge: Home with Homehealth Within: within 24 hours
[2017-01-05] MEDS: ONDANSETRON 4 MG TAB.RAPDIS PO PRN ×2 (08:34→17:51)
--- NOTE | 2017-01-05 09:23 | PDOC PROGRESS REPORT ---
Subjective Progress Note for:: 01/05/17 Subjective:: Patient states that she was doing just fine yesterday evening was able to tolerate her diet. However this morning she is woken up and she is once again having shakes and she has been unable to take a bite of her breakfast due to nausea. She had just been given some Zofran. She denies fever chills. She is having shaking at the time of my visit. She has had no chest pain or heart palpitations. She is having nausea but no vomiting. No abdominal pain. She has not yet had a bowel movement today. She states she has not been having diarrhea. No dysuria, frequency or hematuria. Physical Exam Vital Signs: Temp Pulse Resp BP Pulse Ox 98.2 F 74 16 166/68 H 100 01/05/17 07:41 01/05/17 07:41 01/05/17 07:41 01/05/17 07:41 01/05/17 07:41 Intake & Output 01/04/17 01/05/17 01/06/17 06:59 06:59 06:59 Intake Total 2028 2912 Balance 2028 291 Weight 79.1 kg General appearance: PRESENT: no acute distress, other - She is not in any acute distress but looks as if she does not feel well. Her arms and legs are shaking. She is not cold however. Head exam: PRESENT: atraumatic, normocephalic Eye exam: PRESENT: PERRLA Mouth exam: PRESENT: moist, neck supple Respiratory exam: PRESENT: clear to auscultation steffen. ABSENT: rales, rhonchi, wheezes Cardiovascular exam: PRESENT: RRR, +S1, +S2. ABSENT: diastolic murmur, gallop, rubs, systolic murmur GI/Abdominal exam: PRESENT: normal bowel sounds - She has a ventral hernia that is quite large. This cannot be totally reduced., soft. ABSENT: tenderness Rectal exam: PRESENT: deferred Extremities exam: ABSENT: calf tenderness, clubbing, pedal edema Neurological exam: PRESENT: alert, awake, oriented to person, oriented to place , oriented to time Psychiatric exam: PRESENT: anxious, appropriate affect Skin exam: PRESENT: dry, warm - She has jl in place to the right knee. There is no evidence of infection. Results Laboratory Results: 01/05/17 05:27 01/05/17 05:27 01/05/17 01/05/17 05:27 05:27 WBC 9.0 RBC 3.27 L Hgb 10.1 L Hct 29.6 L MCV 91 MCH 31.1 MCHC 34.2 RDW 13.3 Plt Count 391 Seg Neutrophils % 66.5 Lymphocytes % 18.0 Monocytes % 11.4 Eosinophils % 3.5 Basophils % 0.6 Absolute Neutrophils 6.0 Absolute Lymphocytes 1.6 Absolute Monocytes 1.0 Absolute Eosinophils 0.3 Absolute Basophils 0.1 Sodium 129.0 L Potassium 3.4 L Chloride 96 L Carbon Dioxide 21 L Anion Gap 12 BUN 13 Creatinine 0.65 Est GFR ( Amer) > 60 Est GFR (Non-Af Amer) > 60 Glucose 83 Calcium 8.5 Impressions: Knee X-Ray 12/29/16 09:06 IMPRESSION: SATISFACTORY POSTOPERATIVE RIGHT KNEE. Abdomen/Pelvis CT 12/31/16 17:50 IMPRESSION: NO ACUTE FINDING IN THE ABDOMEN OR PELVIS ON CT SCAN WITH IV CONTRAST. 6.5 cm fat containing infra umbilical ventral hernia. No bowel involvement. Chest X-Ray 01/01/17 00:00 IMPRESSION: NO SIGNIFICANT RADIOGRAPHIC FINDING IN THE CHEST. Assessment & Plan - Diagnosis (1) Acute metabolic encephalopathy Is this a current diagnosis for this admission?: YesPlan: Resolved. It is unclear what the cause of her encephalopathy was. She did have hyponatremia which is improving with IV fluid hydration. It could be due to medications and also severe abdominal pain with nausea and vomiting. In any event she is back to her cognitive baseline. Chest x-ray was negative. She does not have a fever or white blood cell count. Her encephalopathy this morning is resolved but she is still having shaking chills. I am going to obtain a UA and urine culture today for further evaluation (2) Arthritis of right knee Is this a current diagnosis for this admission?: YesPlan: She seems to have tolerated her procedure quite well. She is to be discharged home with home health therapy and she is stable for discharge. She was able to ambulate about 50 feet with the physical therapist yesterday. She is making good progress. (3) Hyponatremia Is this a current diagnosis for this admission?: YesPlan: Slowly improving (4) Rigors Is this a current diagnosis for this admission?: YesPlan: The patient is having shaking spells again this morning. She has not having hot or cold spells. She seems to be quite anxious. I am going to give her 0.5 mg of p.o. Ativan to see if this helps. (5) Ventral hernia Qualifiers: Obstruction and gangrene presence: without obstruction or gangrene Qualified Code(s): K43.9 - Ventral hernia without obstruction or gangrene Is this a current diagnosis for this admission?: YesPlan: This could be the cause for her nausea. General surgery is seen her and recommended holding off on repair at this time since she is still recuperating from the surgery. She will continue to have Zofran available. I am going to increase her Prevacid to twice daily. She will be given some p.o. Ativan and hopefully this will help. If she does not improve we will need to get general surgery back involved (6) Vomiting Qualifiers: Vomiting type: unspecified Vomiting Intractability: non-intractable Nausea presence: with nausea Qualified Code(s): R11.2 - Nausea with vomiting, unspecified Is this a current diagnosis for this admission?: YesPlan: She is having significant nausea this morning but no vomiting. We will continue to monitor. The source of her nausea and vomiting is unknown. It may be related to her ventral hernia. - Time Time Spent with patient: 15-24 minutes - Plan Summary Plan Summary: Going to keep the patient in the hospital. I am going to get a UA and urine culture this morning. I will go back and see her early this afternoon and if she is improved and tolerating a diet I would consider sending her home this afternoon. If not she will remain in the hospital for further workup.
--- NOTE | 2017-01-05 09:43 | PROGRESS NOTE E ---
Progress Note NAME: ALISA PORTER : 1940 AGE: 76Y DATE: 01/05/2017 ROOM: 427 SUBJECTIVE: She denies any pains or discomfort at the umbilical hernia site. She is tolerating her diet well. There is no tenderness at the hernia site. ASSESSMENT/PLAN: Patient at this time does not need any surgical intervention for her umbilical hernia. However, this needs to be followed on an outpatient basis in the Surgical [facility]. DICTATING PHYSICIAN: ELISABETH DECKER M.D. [id number] PHY#: [id number] ID: [id number] JOB#: [id number] ACCT: [id number] cc: >
[2017-01-05] MEDS ORDERED: LORAZEPAM 0.5 MG TABLET PO ONE (10:15)
[2017-01-05] MEDS: NORMAL SALINE 1000 ML 1,000 ML IV PRN (10:32)
[2017-01-05] MEDS: PRENATAL VITAMIN W-O CA NO5/FE FUMARATE/FA CAPSULE PO SCH (10:33)
[2017-01-05] MEDS: SENNOSIDES/DOCUSATE 8.6-50 MG 1 EACH TABLET PO SCH ×2 (10:33→17:52)
[2017-01-05] MEDS: CHOLECALCIFEROL (D3) 1,000 UNIT TABLET PO SCH (10:33)
[2017-01-05] MEDS: POTASSI CL 20 MEQ/50 ML RIDER 20 MEQ/50 ML RTUPB IV SCH ×2 (10:36→13:07)
[2017-01-05 11:01] LABS: ALANINE AMINOTRANSFERASE 30 U/L (9-52); ALBUMIN 2.9 g/dL (3.5-5.0); ALKALINE PHOSPHATASE 94 U/L (38-126); ASPARTATE AMINO TRANSFERASE 26 U/L (14-36); BILIRUBIN,DIRECT 0.5 mg/dL (0.0-0.4); TOTAL PROTEIN 5.8 g/dL (6.3-8.2)
[2017-01-05] MEDS: SPIRONOLACTONE 25 MG TABLET PO SCH (17:51)
[2017-01-05] MEDS: DILTIAZEM HCL 180 MG CAPSULE.CR PO SCH (17:52)
[2017-01-05] MEDS: RIVAROXABAN 10 MG TABLET PO SCH (22:40)
[2017-01-05] MEDS: ACETAMINOPHEN 325 MG TABLET PO PRN (22:45)
[2017-01-06 02:47] VITALS: BP 130/49
[2017-01-06] MEDS: LANSOPRAZOLE 30 MG TAB.RAP.DR PO SCH (05:52)
[2017-01-06] MEDS: CLONIDINE HCL 0.2 MG TABLET PO SCH (05:52)
--- NOTE | 2017-01-06 07:00 | PDOC PROGRESS REPORT ---
Subjective Progress Note for:: 01/06/17 Subjective:: I am ready to go home" Physical Exam Vital Signs: Temp Pulse Resp BP Pulse Ox 36.7 C 77 17 130/49 H 96 01/06/17 01:32 01/06/17 01:32 01/06/17 01:32 01/06/17 01:32 01/06/17 01:32 Intake & Output 01/04/17 01/05/17 01/06/17 06:59 06:59 06:59 Intake Total 2028 2912 1330 Balance 2028 2912 1330 Weight 79.1 kg Results Laboratory Results: 01/05/17 05:27 01/05/17 05:27 01/05/17 05:27 Total Bilirubin 1.0 AST 26 ALT 30 Alkaline Phosphatase 94 Total Protein 5.8 L Albumin 2.9 L Impressions: Knee X-Ray 12/29/16 09:06 IMPRESSION: SATISFACTORY POSTOPERATIVE RIGHT KNEE. Abdomen/Pelvis CT 12/31/16 17:50 IMPRESSION: NO ACUTE FINDING IN THE ABDOMEN OR PELVIS ON CT SCAN WITH IV CONTRAST. 6.5 cm fat containing infra umbilical ventral hernia. No bowel involvement. Chest X-Ray 01/01/17 00:00 IMPRESSION: NO SIGNIFICANT RADIOGRAPHIC FINDING IN THE CHEST. Assessment & Plan - Diagnosis (1) Arthritis of right knee Is this a current diagnosis for this admission?: YesPlan: 76-year-old white female status post right knee arthroplasty 8 days ago. Hospitalization has been extended for medical workup. Patient can be discharged at medicine's discretion. - Time Time Spent with patient: 15-24 minutes Anticipated discharge: Home with Homehealth Within: Other
[2017-01-06] MEDS: PRENATAL VITAMIN W-O CA NO5/FE FUMARATE/FA CAPSULE PO SCH (09:11)
[2017-01-06] MEDS: SENNOSIDES/DOCUSATE 8.6-50 MG 1 EACH TABLET PO SCH (09:12)
[2017-01-06] MEDS: CHOLECALCIFEROL (D3) 1,000 UNIT TABLET PO SCH (09:12)
--- NOTE | 2017-01-06 10:00 | PDOC DISCHARGE SUMMARY ---
General - Admit/Disc Date/PCP Admission Date/Primary Care Provider: 12/29/16 05:31 ROXANA GILLIAM MD Orthopedic surgeon: Dr. Nevarez Discharge Date: 01/06/17 - Discharge Diagnosis (1) Acute metabolic encephalopathy Is this a current diagnosis for this admission?: YesSummary: Likely secondary to medications and acute pain. The patient also had fairly market hyponatremia which is improving. Resolved. She is back to her cognitive baseline (2) Arthritis of right knee Is this a current diagnosis for this admission?: YesSummary: Status post right knee arthroplasty performed by Dr. Nevarez (3) Hyponatremia Is this a current diagnosis for this admission?: YesSummary: Improving at the time of discharge. This will need to be rechecked at her primary care physician's office next week. (4) Rigors Is this a current diagnosis for this admission?: YesSummary: No evidence of infection. Possibly secondary to severe anxiety. She was having a severe shaking spell as of 01/05/2017 that resolved with a dose of Ativan. (5) Ventral hernia Is this a current diagnosis for this admission?: YesSummary: This will need repair. She should follow-up with a general surgeon as an outpatient. She was evaluated by general surgery here at the hospital. Her ventral hernia was mostly reduced. At this point due to her recent orthopedic surgery they recommend an outpatient referral for repair when she recuperates from the surgery. I will defer to her primary care physician to do this. (6) Vomiting Is this a current diagnosis for this admission?: YesSummary: Resolved - Additional Information Resuscitation Status: Full Code Discharge Diet: As Tolerated, Regular Discharge Activity: Balance Activity w/Rest, No tub bath Home Medications: Clonidine HCl 0.6 mg PO TID 12/22/16 Diltiazem HCl [Taztia Xt] 360 mg PO QPM 12/22/16 Ergocalciferol (Vitamin D2) [Vitamin D] 1,000 unit PO DAILY 12/22/16 Spironolactone 25 mg PO QPM 12/22/16 Vit C/Vit E/Lutein/Min/Courtland-3 [Ocuvite Softgel] 1 each PO DAILY 12/22/16 Sulfamethoxazole/Trimethoprim [Septra-Ds 800-160 mg Tablet] 1 tab PO BID Oxycodone HCl [Oxy-Ir 5 mg Tablet] 5 mg PO Q6HP PRN #0 tablet 12/31/16 Rivaroxaban [Xarelto 10 mg Tablet] 10 mg PO QHS #0 tablet 12/31/16 History of Present Illness History of Present Illness: ALISA PORTER is a 76 year old female who was admitted to the hospital for a right knee arthroplasty Hospital Course Hospital Course: Please see dictated discharge summary from Dr. Nevarez on 12/31/2016 for details of her orthopedic progress. She was admitted under the orthopedic service. Unfortunately on the day of discharge (12/31/2016) the patient became acutely encephalopathic. She was having severe abdominal pain as well as nausea and vomiting. She was kept in the hospital for further evaluation. She was found to have a very large ventral hernia. General surgery saw the patient and partially reduce this. Her nausea and vomiting resolved as well as her abdominal pain. The patient started having severe shaking spells and it was felt that she may be having rigors. She was kept in the hospital. Blood cultures and urine cultures have remained negative. Chest x-ray was negative as well. No source of infection has been noted. Yesterday the patient began having these shaking spells again. She admitted that she is quite anxious and her shaking spells resolved with a dose of Ativan. At this point it is felt that her shaking spells were due to anxiety. At this point from the hospitalist perspective she is stable for discharge. She is tolerating her diet. She has had no further nausea or vomiting. Her abdominal pain has resolved. She is no longer having shaking spells. She should follow-up with a general surgeon after she recuperates from the surgery. I will defer to her primary care physician for outpatient referral. At this point maximum hospital benefits been reached. The patient will be discharged home today in stable condition. Of note Dr. Nevarez arranged home health services for the patient at the time of discharge. Physical Exam Vital Signs: Temp Pulse Resp BP Pulse Ox 98.1 F 77 17 130/49 H 96 01/06/17 01:32 01/06/17 01:32 01/06/17 01:32 01/06/17 01:32 01/06/17 01:32 Intake & Output 01/05/17 01/06/17 01/07/17 06:59 06:59 06:59 Intake Total 2912 1330 Balance 2912 1330 General appearance: PRESENT: no acute distress, well-developed, well-nourished Head exam: PRESENT: atraumatic, normocephalic Mouth exam: PRESENT: moist, tongue midline Neck exam: ABSENT: carotid bruit, JVD, lymphadenopathy, thyromegaly Respiratory exam: PRESENT: clear to auscultation steffen. ABSENT: rales, rhonchi, wheezes Cardiovascular exam: PRESENT: RRR. ABSENT: diastolic murmur, rubs, systolic murmur GI/Abdominal exam: PRESENT: hernia - She has a rather large ventral hernia, normal bowel sounds, soft. ABSENT: tenderness Rectal exam: PRESENT: deferred Musculoskeletal exam: PRESENT: ambulatory - The patient is ambulating with a walker and doing fairly well. Neurological exam: PRESENT: alert, awake, oriented to person, oriented to place , oriented to time, oriented to situation, CN II-XII grossly intact. ABSENT: motor sensory deficit Psychiatric exam: PRESENT: appropriate affect, normal mood. ABSENT: homicidal ideation, suicidal ideation Skin exam: PRESENT: dry, intact, warm, other - She does have jl in place to the right knee. There is no evidence of infection. Her incision seems to be healing well.. ABSENT: cyanosis, rash Results Laboratory Results: 01/05/17 05:27 01/05/17 05:27 01/05/17 05:27 Total Bilirubin 1.0 AST 26 ALT 30 Alkaline Phosphatase 94 Total Protein 5.8 L Albumin 2.9 L Impressions: Knee X-Ray 12/29/16 09:06 IMPRESSION: SATISFACTORY POSTOPERATIVE RIGHT KNEE. Abdomen/Pelvis CT 12/31/16 17:50 IMPRESSION: NO ACUTE FINDING IN THE ABDOMEN OR PELVIS ON CT SCAN WITH IV CONTRAST. 6.5 cm fat containing infra umbilical ventral hernia. No bowel involvement. Chest X-Ray 01/01/17 00:00 IMPRESSION: NO SIGNIFICANT RADIOGRAPHIC FINDING IN THE CHEST. Qualifiers PATEINT BEING DISCHARGED WITH ANY OF THE FOLLOWING DIAGNOSIS?: No Plan Discharge Plan: The patient is stable to be discharged from the hospital from a medical standpoint. She will keep all of her appointments scheduled by Dr. Nevarez.
== END 2017-01-06 10:38 | disposition home health service (06) | DRG 469 ==
LOC: INOR 05:31 → 4S 09:59 → 4W 01-02 21:08 → 4S 01-04 06:33
PROVIDERS: ADMIT Orthopaedic Surgery; ATTEND Orthopaedic Surgery
PROC: 0SRC0J9 Replacement of Right Knee Joint with Synthetic Substitute, Cemented, Open Approach (ICD-10-PCS; principal; 2016-12-29 07:30)
PROC: 0WQFXZZ Repair Abdominal Wall, External Approach (ICD-10-PCS; 2017-01-03)
DX: M17.11 Unilateral primary osteoarthritis, right knee (principal); G92 Toxic encephalopathy; E87.1 Hypo-osmolality and hyponatremia; K43.9 Ventral hernia without obstruction or gangrene; R11.2 Nausea with vomiting, unspecified; R50.9 Fever, unspecified; R10.30 Lower abdominal pain, unspecified; Z96.659 Presence of unspecified artificial knee joint
CPT/HCPCS: 01402; 36415; 71020; 74177; 80048; 80053; 80076; 81001; 82962; 83605; 83690; 83735; 84100; 84132; 85025; 85027; 86140; 87040; 87086; 88305; 88311; 93005; 93010; 94799; C9290; G8978-GP; G8979-GP; G8987-GO; G8988-GO; J0131; J0690; J1741; J2250; J2270; J2370; J2405; J2704; J3010; J3370; J3480; J3490; J7030; J7050; J7060; S0119

== ENCOUNTER → 2017-11-11 | Outpatient (CLI) | payer MEDICARE, MEDICAID ==
--- NOTE | 2017-11-11 12:21 | WOMENS IMAGING REPORT ---
EXAM DESCRIPTION: BILAT SCREENING MAMMO W/CAD COMPLETED DATE/TIME: 11/11/2017 9:40 am REASON FOR STUDY: ROUTINE SCREENING;Z12.31 Z12.31 ENCNTR SCREEN MAMMOGRAM FOR MALIGNANT NEOPLASM OF YOLETTE COMPARISON: [id number] TECHNIQUE: Standard craniocaudal and mediolateral oblique views of each breast recorded using [place] l acquisition. LIMITATIONS: None. FINDINGS: No masses, calcifications or architectural distortion. No areas of suspicion. Read with the assistance of CAD. .[facility] - R2 Cenova Version 1.3 .[facility] - R2 Cenova Version 1.3 .[facility] - R2 Cenova Version 2.4 .[facility] [place] [facility] - R2 Cenova Version 2.4 .[facility] - R2 Segmental Paving Supervisor Version 9.2 IMPRESSION: NORMAL MAMMOGRAM. BIRADS 1. BREAST DENSITY: a. The breasts are almost entirely fatty. BIRAD: 1 NEGATIVE RECOMMENDATION: ROUTINE SCREENING COMMENT: The patient has been notified of the results by letter per SA requirements. Additional no tification policies are in place for contacting patient with suspicious or incomplete findings. Quality ID #225: The [employer] recommends an annual screening mammogram for women aged 40 years or over. This facility utilizes a reminder system to ensure that all patients receive reminder letters, and/or direct phone calls for appointments. This includes reminders for routine scr eening mammograms, diagnostic mammograms, or other Breast Imaging Interventions when appropriate. Th is patient will be placed in the appropriate reminder system. The [employer] (ACR) has developed recommendations for screening MRI of the breast s in certain patient populations, to be used in conjunction with mammography. Breast MRI surveillanc e may be appropriate for women with more than 20% lifetime risk of developing breast cancer as deter mined by genetic testing, significant family history of the disease, or history of mantle radiation f or Hodgkins Disease. ACR Practice Guidelines 2008. TECHNICAL DOCUMENTATION: FINDING NUMBER: (1) ASSESSMENT: (1) JOB ID: [id number] [employer]- All Rights Reserved Reading location - IP/workstation name: [email or web address]
== END ==
LOC: WI 09:17
PROVIDERS: ATTEND Internal Medicine
DX: Z12.31 Encounter for screening mammogram for malignant neoplasm of breast (principal)
CPT/HCPCS: 77067

== ENCOUNTER → 2018-07-25 | Outpatient (CLI) | payer MEDICARE, MEDICAID ==
--- NOTE | 2018-07-25 12:24 | RADIOLOGY REPORT (SQ) ---
EXAM DESCRIPTION: U/S RETROPERITON (RENAL/AORTA) COMPLETED DATE/TIME: 07/25/2018 12:10 pm REASON FOR STUDY: N18.3/I12.9 STAGE 3 CHRONIC KIDNEY DISEASE N18.3 CHRONIC KIDNEY DISEASE, STAGE 3 (MODERATE) COMPARISON: None. TECHNIQUE: Dynamic and static grayscale images acquired of the kidneys and bladder and recorded on P ACS. Additional selected color Doppler and spectral images recorded. LIMITATIONS: None. FINDINGS: RIGHT KIDNEY: Normal size. Normal echogenicity. No solid or suspicious masses. No hydronep hrosis. No calcifications. LEFT KIDNEY: Normal size. Normal echogenicity. No solid or suspicious masses. No hydronephrosis. No calcifications. BLADDER: No masses. OTHER FINDINGS: No other significant finding. IMPRESSION: NORMAL RENAL AND BLADDER ULTRASOUND. TECHNICAL DOCUMENTATION: JOB ID: [id number] [employer]- All Rights Reserved Reading location - IP/workstation name: [email or web address]
== END ==
LOC: RAD 10:59
PROVIDERS: ATTEND Internal Medicine Nephrology
DX: I12.9 Hypertensive chronic kidney disease with stage 1 through stage 4 chronic kidney disease, or unspecified chronic kidney disease (principal); N18.3 Chronic kidney disease, stage 3 (moderate)
CPT/HCPCS: 76770

== ENCOUNTER → 2019-01-26 | Outpatient (CLI) | payer MEDICARE, MEDICAID ==
--- NOTE | 2019-01-26 09:54 | WOMENS IMAGING REPORT ---
EXAM DESCRIPTION: 3D SCREENING MAMMO BILAT COMPLETED DATE/TIME: 01/26/2019 9:27 am REASON FOR STUDY: Z12.31 ROUTINE 3D BILATERAL SCREENING Z12.31 ENCNTR SCREEN MAMMOGRAM FOR MALIGNAN T NEOPLASM OF YOLETTE COMPARISON: [id number] EXAM PARAMETERS: Standard craniocaudal and mediolateral oblique views of each breast recorded using digital acquisition and breast tomosynthesis. Read with the assistance of CAD. .[facility] - R2 Quality System Manager Version 9.2 LIMITATIONS: None. FINDINGS: RIGHT BREAST MASSES: No suspicious masses. CALCIFICATIONS: No new or suspicious calcifications. ARCHITECTURAL DISTORTION: None. DEVELOPING DENSITY: 6 o'clock position about 8 cm deep to the nipple. ASYMMETRY: None noted. OTHER: No other significant findings. LEFT BREAST MASSES: No suspicious masses. CALCIFICATIONS: No new or suspicious calcifications. ARCHITECTURAL DISTORTION: None. DEVELOPING DENSITY: None. ASYMMETRY: None noted. OTHER: No other significant findings. IMPRESSION: Developing density right breast. 0 Incomplete: Needs Additional Imaging Evaluation and/or prior Mammograms for Comparison. BREAST DENSITY: b. There are scattered areas of fibroglandular density. BIRAD: ASSESSMENT: 0 Incomplete: Needs Additional Imaging Evaluation and/or prior Mammograms for C omparison. RECOMMENDATION: RECOMMENDED FOLLOW-UP: Cone compression views and potential ultrasound right breast. The patient will be contacted for additional imaging. COMMENT: The patient has been notified of the results by letter per MQSA requirements. Additional no tification policies are in place for contacting patient with suspicious or incomplete findings. Quality ID #225: The [employer] recommends an annual screening mammogram for women aged 40 years or over. This facility utilizes a reminder system to ensure that all patients receive reminder letters, and/or direct phone calls for appointments. This includes reminders for routine scr eening mammograms, diagnostic mammograms, or other Breast Imaging Interventions when appropriate. Th is patient will be placed in the appropriate reminder system. TECHNICAL DOCUMENTATION: FINDING NUMBER: (1) ASSESSMENT: (1) JOB ID: [id number] [employer]- All Rights Reserved Reading location - IP/workstation name: [email or web address]
== END ==
LOC: WI 09:00
PROVIDERS: ATTEND Obstetrics & Gynecology Gynecology
DX: Z12.31 Encounter for screening mammogram for malignant neoplasm of breast (principal)
CPT/HCPCS: 77063; 77067

== ENCOUNTER → 2019-02-07 | Outpatient (CLI) | payer MEDICARE, MEDICAID ==
--- NOTE | 2019-02-07 10:34 | WOMENS IMAGING REPORT ---
EXAM DESCRIPTION: RIGHT DIAGNOSTIC MAMMO W/CAD; U/S BREAST UNILAT LIMITED COMPLETED DATE/TIME: 02/07/2019 9:42 am; 02/07/2019 10:07 am REASON FOR STUDY: R92.2 INCONCLUSIVE MAMMOGRAM; R92.2 RIGHT BREAST R92.2 INCONCLUSIVE MAMMOGRAM COMPARISON: 01/26/2019 and 11/11/2017. EXAM PARAMETERS: True lateral and spot compression magnification lateral and CC images acquired. LIMITATIONS: None. FINDINGS: BREAST LATERALITY: right MASSES: There is a spiculated mass in the inferior breast with irregular margins. CALCIFICATIONS: Calcifications associated with the spiculated mass, irregular in size and shape. ARCHITECTURAL DISTORTION: None. DEVELOPING DENSITY: None. ASYMMETRY: None noted. OTHER: No other significant findings. BREAST ULTRASOUND: TECHNIQUE: Static and dynamic grayscale images acquired of the right breast in the specific areas of clinical/mammographic concern. Selected color Doppler images recorded. ELASTOGRAPHY PERFORMED: No. LIMITATIONS: None. FINDINGS: MASS: No mass identified. Normal glandular tissue. ELASTOGRAPHY CHARACTERISTICS: Not applicable. OTHER: No other significant finding. IMPRESSION: Suspicious mammographic findings with a spiculated mass in the inferior breast and assoc iated pleomorphic microcalcifications. This mass could not be localized under ultrasound. BREAST DENSITY: b. There are scattered areas of fibroglandular density. BIRAD: ASSESSMENT: 4 Suspicious. Biopsy should be performed in the absence of clinical contra-indic ation. RECOMMENDATION: RECOMMENDED FOLLOW UP: Birads 4: Biopsy should be performed in the absence of clinic al contraindication. SPECIFIC INTERVENTION/IMAGING/CONSULTATION RECOMMENDED:The suspicious finding(s) amenable to stereo-t actic-guided vacuum assisted core biopsy. COMMUNICATION:The imaging findings were not discussed with the patient. Her referring provider has be en notified of the findings. COMMENT: The patient has been notified of the results by letter per MQSA requirements. Additional no tification policies are in place for contacting patient with suspicious or incomplete findings. Quality ID #225: The [employer] recommends an annual screening mammogram for women aged 40 years or over. This facility utilizes a reminder system to ensure that all patients receive reminder letters, and/or direct phone calls for appointments. This includes reminders for routine scr eening mammograms, diagnostic mammograms, or other Breast Imaging Interventions when appropriate. Th is patient will be placed in the appropriate reminder system. TECHNICAL DOCUMENTATION: FINDING NUMBER: (1) ASSESSMENT: (1) JOB ID: [id number] [employer]- All Rights Reserved Reading location - IP/workstation name: [email or web address]
== END ==
LOC: WI 09:25
PROVIDERS: ATTEND Obstetrics & Gynecology Gynecology
DX: R92.2 Inconclusive mammogram (principal)
CPT/HCPCS: 76642

== ENCOUNTER → 2019-03-15 | Day surgery (SDC) | payer MEDICARE, MEDICAID ==
[~2019-03-15] MED LIST changes: -BUPIVACAINE INJ/PF LIPOSOME/PF 266 MG/20 ML SDV IJ PRN; -CEFAZOLIN INJ 1 GM VIAL IV PRN; -IBUPROFEN 800 MG in NORMAL SALINE 250 ML IV PRN; -LACTATED RINGERS 1000 ML IV PRN; -LANSOPRAZOLE 15 MG TAB.RAP.DR PO PRN; -LIDOCAINE 0.5% INJ-PF (5 MG/ML) 50 ML SDV SUBCUT PRN; +LIDOCAINE 1%/EPINEPHRINE INJ 20 ML VIAL ONE; -OXYCODONE HCL SR 10 MG TABLET PO PRN; -SCOPOLAMINE HYDROBROMIDE 1.5 MG PATCH.TD72 TD PRN; -VANCOMYCIN HCL 1,000 MG in DEXTROSE 5%-WATER 250 ML IV PRN
--- NOTE | 2019-03-15 12:20 | Discharge Summary ---
Discharge Summary (SDC) - Discharge Final Diagnosis: Asymmetric nodular density right breast Date of Surgery: 03/15/19 Discharge Date: 03/15/19 Condition: Good Treatment or Instructions: Leave Steri-Strips on; sponge bath for 48 hours; return to [facility] in 1 week to discuss pathology report. Take Tylenol or Motrin as needed pain Referrals: DARIUSZ MCCARTY MD [Primary Care Provider] - Discharge Diet: As Tolerated Discharge Activity: Activity As Tolerated Home Care Assistance: None Needed Report the Following to Your Physician Immediately: Shortness of Breath, Increase in Pain, Fever over 101 Degrees
--- NOTE | 2019-03-15 12:24 | Operative Report ---
Operative Report DATE OF SURGERY: 03/15/19 PREOPERATIVE DIAGNOSIS: Asymmetric nodular density right breast with microcalci fications POSTOPERATIVE DIAGNOSIS: Same OPERATION: 1. Stereotactically directed incision mammotomy multiple core biopsies right breast mass. 2. Placement of clip marker at biopsy site. 3. interpretation of intraoperative mammography and specimen radiograph SURGEON: DARIUSZ MCCARTY ANESTHESIA: Local TISSUE REMOVED OR ALTERED: Multiple cores right breast COMPLICATIONS: None ESTIMATED BLOOD LOSS: 5 cc INTRAOPERATIVE FINDINGS: See below PROCEDURE: The [facility] The right breast was placed in compression. The Target asymmetric nodular density in the central aspect of the right breast was localized with the stereotactic imaging system.. Surgical plan and surgical timeout conducted. The surface of the right breast was exposed, prepped with Betadine and anesthetized with 1% plain lidocaine. The mammotome was advanced to the appropriate depth. Pre-and post fire films showed good alignment between the biopsy end of the mammotome, and the asymmetric nodular density, central aspect. We proceeded to obtain approximately 11 cores in a circumferential fashion. The core specimens were placed on a Angelo dish, and photograph of the specimen radiograph machine in the stereotactic biopsy room. The images showed retention of a cluster microcalcifications, macrocalcification and adequate parenchyma. We now deployed into the biopsy cavity a clip marker. Post alignment images showed retention of clip in the cavity. At this point felt the operation was complete. Benzoin and Steri-Strips were placed on the mammotomy. The patient tolerated procedure well. Complete discharge instructions provided by nursing staff.
== END ==
LOC: RAD 10:48
PROVIDERS: ATTEND Surgery
DX: C50.911 Malignant neoplasm of unspecified site of right female breast (principal); R92.0 Mammographic microcalcification found on diagnostic imaging of breast; I12.9 Hypertensive chronic kidney disease with stage 1 through stage 4 chronic kidney disease, or unspecified chronic kidney disease; N18.9 Chronic kidney disease, unspecified
CPT/HCPCS: 88342 ×2; 88305 ×2; 19081; J3490

== ENCOUNTER → 2019-03-20 | Outpatient (CLI) | payer MEDICARE, MEDICAID ==
[2019-03-20 10:02] LABS: ABSOLUTE BASOPHILS # (AUTO) 0.1 10^3/uL (0.0-0.2); ABSOLUTE EOSINOPHILS # (AUTO) 0.1 10^3/uL (0.0-0.6); ABSOLUTE LYMPHOCYTES (AUTO) 1.8 10^3/uL (0.5-4.7); ABSOLUTE MONOCYTES (AUTO) 0.4 10^3/uL (0.1-1.4); ABSOLUTE NEUT (AUTO) 3.3 10^3/uL (1.7-8.2); BASOPHILS % (AUTO) 0.9 % (0-2); EOSINOPHILS % (AUTO) 1.6 % (0-6); HEMATOCRIT 40.9 % (36.0-47.0); HEMOGLOBIN 13.9 g/dL (12.0-15.5); LYMPHOCYTES % (AUTO) 32.3 % (13-45); MEAN CORPUSCULAR HEMOGLOBIN 31.7 pg (27.0-33.4); MEAN CORPUSCULAR VOLUME 93 fl (80-97); MONOCYTES % (AUTO) 7.2 % (3-13); PLATELET COUNT 305 10^3/uL (150-450); RED BLOOD COUNT 4.39 10^6/uL (3.72-5.28); RED CELL DISTRIBUTION WIDTH 14.4 % (11.5-14.0); TOTAL CELLS COUNTED % (AUTO) 100 %; WHITE BLOOD COUNT 5.6 10^3/uL (4.0-10.5)
[2019-03-20 10:31] LABS: ALBUMIN 4.2 g/dL (3.5-5.0); ANION GAP 10 (5-19); BLOOD UREA NITROGEN 15 mg/dL (7-20); CARBON DIOXIDE 26 mmol/L (22-30); CHLORIDE 104 mmol/L (98-107); GLUCOSE 104 mg/dL (75-110); PHOSPHORUS 3.8 mg/dL (2.5-4.5); POTASSIUM 5.2 mmol/L (3.6-5.0)
[2019-03-21 11:42] LABS: APPEARANCE,URINE CLEAR; BILIRUBIN,URINE NEGATIVE (NEGATIVE); COLOR,URINE STRAW; GLUCOSE, URINE NEGATIVE (NEGATIVE); KETONES,URINE NEGATIVE (NEGATIVE); LEUKOCYTE ESTERASE,URINE NEGATIVE (NEGATIVE); NITRITE,URINE NEGATIVE (NEGATIVE); PROTEIN,URINE NEGATIVE (NEGATIVE); URINE SPECIFIC GRAVITY 1.005; UROBILINOGEN,URINE NEGATIVE mg/dL (<2.0)
[2019-03-22 09:37] LABS: CREATININE URINE 19.1 mg/dL (Not Estab.)
[2019-03-22 09:57] LABS: MICROALBUMIN URINE <3.0 ug/mL (Not Estab.)
== END ==
LOC: OD 09:22
PROVIDERS: ATTEND Internal Medicine Nephrology
DX: I12.9 Hypertensive chronic kidney disease with stage 1 through stage 4 chronic kidney disease, or unspecified chronic kidney disease (principal); N18.3 Chronic kidney disease, stage 3 (moderate); R80.9 Proteinuria, unspecified; E87.2 Acidosis
CPT/HCPCS: 36415; 80069; 81001; 82043; 82306; 82570; 83970; 85025

== ENCOUNTER 2019-05-23 10:24 | Day surgery (SDC) | payer MEDICARE, MEDICAID ==
[2019-05-18 10:04] LABS: HEMATOCRIT 43.3 % (36.0-47.0); HEMOGLOBIN 14.6 g/dL (12.0-15.5); MEAN CORPUSCULAR HEMOGLOBIN 31.5 pg (27.0-33.4); MEAN CORPUSCULAR HGB CONC 33.7 g/dL (32.0-36.0); MEAN CORPUSCULAR VOLUME 94 fl (80-97); PLATELET COUNT 368 10^3/uL (150-450); RED BLOOD COUNT 4.63 10^6/uL (3.72-5.28); RED CELL DISTRIBUTION WIDTH 13.3 % (11.5-14.0)
[2019-05-18 10:26] LABS: ANION GAP 12 (5-19); BLOOD UREA NITROGEN 15 mg/dL (7-20); CALCIUM 10.2 mg/dL (8.4-10.2); CARBON DIOXIDE 23 mmol/L (22-30); CHLORIDE 104 mmol/L (98-107); GLUCOSE 99 mg/dL (75-110); POTASSIUM 4.5 mmol/L (3.6-5.0)
--- NOTE | 2019-05-18 18:16 | EKG REPORT ---
SEVERITY:- ABNORMAL ECG - SINUS RHYTHM PROBABLE LEFT ATRIAL ABNORMALITY LEFT POSTERIOR FASCICULAR BLOCK CONSIDER ANTERIOR INFARCT : Confirmed by: Alex Nicole MD 18-May-2019 18:15:18
[~2019-05-23 10:24] MED LIST changes: +CEFAZOLIN SODIUM 1 GM in DEXTROSE 5%-WATER 50 ML IV PRN; +DEXTROSE 5%-LACTATED RINGERS 1,000 ML IV PRN; +FENTANYL CITRATE INJ/PF 100 MCG/2 ML AMPUL ONE; +LACTATED RINGERS 1000 ML IV PRN; +LIDOCAINE 0.5% INJ-PF (5 MG/ML) 50 ML SDV SUBCUT PRN; -LIDOCAINE 1%/EPINEPHRINE INJ 20 ML VIAL ONE; +LIDOCAINE 2% INJ (20 MG/ML) 20 ML MDV ONE; +MIDAZOLAM 2 MG/2 ML INJ ONE; +PROPOFOL INJ 200 MG/20 ML VIAL IV ONE
[2019-05-23] MEDS ORDERED: LIDOCAINE 1%/EPINEPHRINE INJ 20 ML VIAL ONE (11:39)
[2019-05-23] MEDS ORDERED: MICROFIBRILLAR COLLAGEN 1 GM PACK ONE (11:39)
[2019-05-23] MEDS ORDERED: ONDANSETRON HCL INJ/PF 4 MG/2 ML SDV ONE (11:57)
[2019-05-23] MEDS ORDERED: FENTANYL CITRATE INJ/PF 100 MCG/2 ML AMPUL IV PRN ×3 (11:59)
[2019-05-23] MEDS ORDERED: MEPERIDINE HCL/PF INJ 25 MG/1 ML DISP.SYRIN IV PRN (11:59)
[2019-05-23] MEDS ORDERED: DIPHENHYDRAMINE HCL 50 MG/ML VIAL IV PRN (11:59)
[2019-05-23] MEDS ORDERED: ONDANSETRON HCL INJ/PF 4 MG/2 ML SDV IV PRN (11:59)
--- NOTE | 2019-05-23 13:00 | Operative Report ---
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 Status post needle localization of clip marker POSTOPERATIVE DIAGNOSIS: Same OPERATION: 1. Needle localized open excisional lumpectomy right breast. 2. Interpretation of intraoperative specimen radiograph SURGEON: DARIUSZ MCCARTY 1ST WOOD LATHER: PHONG PERSAUD ANESTHESIA: LMAC TISSUE REMOVED OR ALTERED: Lumpectomy specimen with wire, needle, and stereotactic clip marker COMPLICATIONS: None ESTIMATED BLOOD LOSS: Scant INTRAOPERATIVE FINDINGS: See below PROCEDURE: The patient was seen in the preop holding area where the right breast was marked. She is undergone needle localization of the previously placed clip marker following stereotactically directed biopsy. The patient was taken to the main operating room where LMAC anesthesia was induced. The hub of the needle was clipped with a wireless sales manager in the right breast prepped and draped in sterile fashion Surgical plan surgical timeout were conducted. The right breast was anesthetized 1% plain lidocaine. Approximately 5 cm horizontal incision was made medial and lateral to the needle and wire which were placed in the left breast a caudal to cranial direction in the inferior medial quadrant. Dissection was undertaken with electrocautery and Allis clamps. We followed the anticipated direction of the needle and wire such that a 2 x 3 x 7 cm segment of breast tissue was removed. The needle and wire were left in situ. The specimen was placed in a specimen container and photographed with the needle in the 6 o'clock position in relation to the specimen radiograph machine. 2 views were obtained. The images revealed retention of the needle, wire, and clip marker in the specimen, with some residual microcalcifications. We felt the acquisition of the target clip and surrounding skin was sufficient to complete the lumpectomy. We returned to the patient's right breast to check for any palpable densities and there were none. Hemostasis was felt to be satisfactory. Wound closed with 3-0 Vicryl benzoin and Steri-Strips. Patient tolerated procedure well, taken recovery in stable condition The physician assistant statistician, Ms. Aguilera, provided assistance during this case by: Assisting with retracting tissue, instillation of local anesthesia and closure of skin incisions.
[2019-05-23] MEDS ORDERED: OXYCODONE-ACETAMINOPHEN 5-325 MG TABLET PO PRN (13:12)
--- NOTE | 2019-05-23 13:12 | Discharge Summary ---
Discharge Summary (SDC) - Discharge Final Diagnosis: Right breast lumpectomy Date of Surgery: 05/23/19 Discharge Date: 05/23/19 Condition: Good Treatment or Instructions: [facility] [address] [place] [id number] Care Instructions Following Your Lumpectomy Activities: Resume normal activities when you feel comfortable. It is best to remain as active as possible to speed your recovery. It is common to experience some fatigue after surgery and you may find that short naps are helpful. Avoid strenuous activity such as weight lifting, tennis, etc at your surgical site for two weeks. Perform gentle arm exercises daily and do not favor your operative arm to due increased risk of mobility issues postoperatively. No driving for 7 days after surgery. Do not drive if you are taking pain medication other than Tylenol or Ibuprofen. No swimming, tub baths or soaking in a hot tub for 4 weeks. There are no dietary restrictions. Do not smoke as this impairs wound healing. Surgical Site care: You may shower in 48 hours. Leave the steri-strips in place. Wash the wound with soap and water using your hands. Do not scrub the incision. Pat the area dry with a towel. You do not need to recover the wound although some patients find that they feel more comfortable using a light dressing for a few days to absorb any minimal drainage which may occur. Medications: You may take Percocet 5-325, one pill by mouth every six hours as needed for pain. Do not take additional tylenol with the percocet. You may experience constipation after surgery while taking pain medications. If using a narcotic on a regular basis, take a stool softener such as Colace twice a day. It is helpful to stay hydrated by drinking lots of fluids. Walking is also helpful and is good exercise after surgery. If you need extra help, use Milk of Magnesia according to the directions on the package. Follow-up: Call our office at to make a follow-up appointment in 10-14 days. Your doctor will call to discuss the pathology report with you as soon as it is available. Concerns: Please call our office to come in immediately for the drains to be checked. Some bruising may occur and will go away over time. If you have a fever of 101.5 or greater, chills, redness at the incision site, excessive drainage from your wound or severe pain not relieved by pain medication, call your doctor. A physician is available 24 hours a day 7 days a week in addition to regular office hours. If problems arise after normal office hours please call the hospital at . Please call if you have any questions or concerns. Prescriptions: Oxycodone HCl/Acetaminophen [Percocet 5-325 mg Tablet] 1 tab PO ASDIR PRN #10 tab PRN Reason: Discharge Diet: As Tolerated Discharge Activity: Activity As Tolerated, Walk Frequently Report the Following to Your Physician Immediately: Vomiting, Increase in Pain, Fever over 101 Degrees, Unusual Bleeding, Redness, Swelling, Warmth, Drainage- Foul Smelling
[2019-05-23 17:03] VITALS: BP 135/75
== END 2019-05-23 14:35 | disposition home or self-care (01) ==
LOC: OROUT 10:24
PROVIDERS: ATTEND Surgery
DX: C50.811 Malignant neoplasm of overlapping sites of right female breast (principal); Z17.0 Estrogen receptor positive status [ER+]; I10 Essential (primary) hypertension; E55.9 Vitamin D deficiency, unspecified; Z96.653 Presence of artificial knee joint, bilateral; Z79.899 Other long term (current) drug therapy
CPT/HCPCS: 93005; 36415 ×2; 84132; 85027; 80048; 88307 ×2; 93010; 19281; 76098; 19301; J2250; J3490 ×2; J0690; J3010; J2405; J7060; J2704; 400

== ENCOUNTER → 2019-08-08 | Outpatient (CLI) | payer MEDICARE, MEDICAID ==
--- NOTE | 2019-08-08 09:33 | WOMENS IMAGING REPORT ---
EXAM DESCRIPTION: BONE DENSITY HIP/SPINE COMPLETED DATE/TIME: 08/08/2019 9:10 am REASON FOR STUDY: M81.0 M81.0 AGE-RELATED OSTEOPOROSIS W/O CURRENT PATHOLOGICAL FRAC COMPARISON: None. TECHNIQUE: Dual-Energy X-ray Absorptiometry (DEXA) of the AP Spine and Hip. LIMITATIONS: None. FINDINGS: LUMBAR SPINE: The bone mineral density (BMD) measured from L1-L4 in the AP projection correlates with a T-score of 1.0, which is normal as defined by the World Health Organization. HIP: The bone mineral density (BMD) measured in the left hip correlates with a T-score of -1.9, which is o steopenia as defined by the World Health Organization. IMPRESSION: 1. LUMBAR SPINE: NORMAL. 2. HIP: OSTEOPENIA. COMMENT: The World Health Organization defines low BMD as follows: T-score: Normal: Greater than -1.0 Osteopenia: Between -1.0 and -2.5 Osteoporosis: Less than -2.5 without fractures Established osteoporosis: Less than -2.5 with fractures In general, you may wish to consider: Diagnosis Treatment Follow-up DEXA Normal BMD Prevention 2-3 years Osteopenia Prevention/Therapy 1-2 years Osteoporosis Therapy Yearly TECHNICAL DOCUMENTATION: JOB ID: [id number] [employer]- All Rights Reserved Reading location - IP/workstation name: [email or web address]
== END ==
LOC: WI 08:47
PROVIDERS: ATTEND Internal Medicine Hematology & Oncology
DX: M81.0 Age-related osteoporosis without current pathological fracture (principal)
CPT/HCPCS: 77080

== ENCOUNTER → 2019-11-22 | Outpatient (CLI) | payer MEDICARE, MEDICAID ==
--- NOTE | 2019-11-22 10:58 | WOMENS IMAGING REPORT ---
EXAM DESCRIPTION: 3D DX MAMMO RIGHT UNILAT IMAGES COMPLETED DATE/TIME: 11/22/2019 10:39 am REASON FOR STUDY: N63.10 RT DX MAMMO Z85.3 PERSONAL HISTORY OF MALIGNANT NEOPLASM OF BREAST COMPARISON: 03/15/2019 EXAM PARAMETERS: Standard craniocaudal and mediolateral oblique images of the breast recorded using digital acquisition and breast tomosynthesis. True lateral view. Read with the assistance of CAD. .[facility] / [facility] - [employer] Version 9.2 LIMITATIONS: None. FINDINGS: BREAST LATERALITY: right MASSES: No suspicious masses. CALCIFICATIONS: No new or suspicious calcifications. ARCHITECTURAL DISTORTION: Associated with lumpectomy at 6 o'clock position posterior 3rd. ASYMMETRY: None noted. OTHER: No other significant findings. IMPRESSION: Postlumpectomy changes. BREAST DENSITY: b. There are scattered areas of fibroglandular density. BIRAD: ASSESSMENT: 2 Benign findings. RECOMMENDATION: RECOMMENDED FOLLOW UP: Annual mammographic follow-up. SPECIFIC INTERVENTION/IMAGING/CONSULTATION RECOMMENDED:No additional intervention/ imaging/consultati on needed at this time. COMMUNICATION:The imaging findings were not discussed with the patient. Her referring provider has be en notified of the findings. COMMENT: The patient has been notified of the results by letter per SA requirements. Additional no tification policies are in place for contacting patient with suspicious or incomplete findings. Quality ID #225: The [employer] recommends an annual screening mammogram for women aged 40 years or over. This facility utilizes a reminder system to ensure that all patients receive reminder letters, and/or direct phone calls for appointments. This includes reminders for routine scr eening mammograms, diagnostic mammograms, or other Breast Imaging Interventions when appropriate. Th is patient will be placed in the appropriate reminder system. TECHNICAL DOCUMENTATION: FINDING NUMBER: (1) ASSESSMENT: (1) JOB ID: [id number] 2010 [employer]- All Rights Reserved Reading location - IP/workstation name: [email or web address]
== END ==
LOC: WI 10:04
PROVIDERS: ATTEND Surgery
DX: N63.10 Unspecified lump in the right breast, unspecified quadrant (principal); Z08 Encounter for follow-up examination after completed treatment for malignant neoplasm; Z85.3 Personal history of malignant neoplasm of breast
CPT/HCPCS: 77065; G0279

== ENCOUNTER → 2020-05-26 | Outpatient (CLI) | payer MEDICARE, MEDICAID ==
--- NOTE | 2020-05-26 11:34 | WOMENS IMAGING REPORT ---
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 True lateral view right breast. Read with the assistance of CAD: .[facility] - [employer] Worker Version 9.2 LIMITATIONS: None. FINDINGS: RIGHT BREAST MASSES: No suspicious masses. CALCIFICATIONS: No new or suspicious calcifications. ARCHITECTURAL DISTORTION: Old lumpectomy. ASYMMETRY: None noted. OTHER: No other significant findings. LEFT BREAST MASSES: No suspicious masses. CALCIFICATIONS: No new or suspicious calcifications. ARCHITECTURAL DISTORTION: None. ASYMMETRY: None noted. OTHER: No other significant finding. IMPRESSION: Stable mammographic pattern. BREAST DENSITY: b. There are scattered areas of fibroglandular density. BIRAD: ASSESSMENT: 2 Benign findings. RECOMMENDATION: RECOMMENDED FOLLOW UP: Annual mammographic follow-up. SPECIFIC INTERVENTION/IMAGING/CONSULTATION RECOMMENDED:No additional intervention/ imaging/consultati on needed at this time. COMMUNICATION:The imaging findings were not discussed with the patient. Her referring provider has be en notified of the findings. COMMENT: The patient has been notified of the results by letter per SA requirements. Additional no tification policies are in place for contacting patient with suspicious or incomplete findings. Quality ID #225: The [employer] recommends an annual screening mammogram for women aged 40 years or over. This facility utilizes a reminder system to ensure that all patients receive reminder letters, and/or direct phone calls for appointments. This includes reminders for routine scr eening mammograms, diagnostic mammograms, or other Breast Imaging Interventions when appropriate. Th is patient will be placed in the appropriate reminder system. TECHNICAL DOCUMENTATION: FINDING NUMBER: (1) ASSESSMENT: (1) JOB ID: [id number] 2010 [employer]- All Rights Reserved Reading location - IP/workstation name: [email or web address]
== END ==
LOC: WI 09:20
PROVIDERS: ATTEND Internal Medicine Hematology & Oncology
DX: C50.811 Malignant neoplasm of overlapping sites of right female breast (principal)
CPT/HCPCS: 77066; G0279; 77062